=== PATIENT | female | born 1940 | race Caucasian/White ===

== ENCOUNTER 2018-07-22 01:51 | Inpatient (IN) | payer MEDICARE, MEDICAID ==
[2018-07-22] MEDS ORDERED: EPINEPHrine 1 mg/ml (1:1000) Inj ONE (02:02)
[2018-07-22] MEDS ORDERED: DiphenhydrAMINE 50 mg/ml Inj ONE (02:02)
[2018-07-22 02:27] LABS: BASO % 0.4 % (0.0-2.0); EOS % 0.1 % (0.0-4.0); HEMOGLOBIN 13.2 g/dL (12.0-16.0); LYMPH # 1.3 K/uL (1.0-4.3); LYMPH % 14.6 % (20.0-40.0); MEAN CELL VOLUME 88.6 fl (81.0-99.0); MEAN CORPUSCULAR HEMOGLOBIN 29.9 pg (27.0-31.0); MEAN CORPUSCULAR HGB CONC 33.8 g/dL (33.0-37.0); MEAN PLATELET VOLUME 9.7 fl (7.2-11.7); MONO # 0.1 K/uL (0.0-0.8); MONO % 1.4 % (0.0-10.0); NEUT # 7.4 K/uL (1.8-7.0); NEUT % 83.5 % (50.0-75.0); RBC 4.41 Mil/uL (3.80-5.20); RED CELL DISTRIBUTION WIDTH 13.6 % (11.5-14.5); WHITE BLOOD COUNT 8.8 K/uL (4.8-10.8)
[2018-07-22] MEDS ORDERED: Sodium Chloride 0.9% 1,000 ML IV STA ×2 (02:28)
[2018-07-22 02:30] LABS: VENOUS BLOOD GAS BASE EXCESS 1.4 mmol/L (0.0-2.0); VENOUS BLOOD GAS PCO2 35 mmHg (40-60); VENOUS BLOOD GAS PO2 154 mm/Hg (30-55); VENOUS BLOOD PH 7.46 (7.32-7.43)
[2018-07-22 02:35] LABS: ABG ALLEN TEST YES; ARTERIAL BLOOD GAS HCO3 24.7 mmol/L (21-28); ARTERIAL BLOOD GAS O2 SAT 100.7 % (95-98); ARTERIAL BLOOD GAS PCO2 38 mm/Hg (35-45); ARTERIAL BLOOD GAS PH 7.41 (7.35-7.45); ARTERIAL BLOOD GAS PO2 155 mm/Hg (80-100); ARTERIAL BLOOD GAS TCO2 25.3 mmol/L (22-28)
[2018-07-22] MEDS ORDERED: Insulin Regular 100 units/ml IV STA (02:38)
[2018-07-22] MEDS ORDERED: Insulin Regular 100 units/ml ONE (02:39)
--- NOTE | 2018-07-22 02:40 | ED PDOC ---
HPI: Allergic Reaction Chief Complaint (Nursing): Allergic Reaction Chief Complaint (Provider): Allergic Reaction History Per: EMS History/Exam Limitations: clinical condition (dementia, non verbal) Additional Complaint(s): 78 years old female with history of CVA, type II diabetes, hypertension and COPD brought in by [facility] from [facility] after patient was found to have swelling to tongue and lips. EMs report they received a call at approximately 11:09 for what appeared to be anaphylaxis but call was canceled by nursing homes. EMS got a call again bringing patient at this time. Per EMS, patient has foul odor with flaking of tongue and lips, however, stable vitals. According to EMS, correction reports patient has been DNR, DNH, DNI; however, son reported as Blaine Ochoa revoked the DNH but patient remained DNR, DNI. Those forms were not sent with EMS. EMS gave epinephrine and decadron with no improvement in status. PMD: Iban Laughlin Past Medical History Reviewed: Historical Data, Nursing Documentation, Vital Signs Vital Signs: Last Vital Signs Temp 98 F 07/22/18 01:54 Pulse 113 H 07/22/18 01:54 Resp 20 07/22/18 01:54 BP 128/60 07/22/18 01:54 Pulse Ox 100 07/22/18 01:54 - Medical History PMH: Anemia, COPD, CVA, HTN, Hypercholesterolemia - Surgical History Surgical History: No Surg Hx - Family History Family History: States: Unknown Family Hx - Home Medications Home Medications: Ambulatory Orders Medication Instructions Recorded Acetaminophen [Tylenol] 2 tab PEG Q4 PRN 03/11/15 Acetaminophen [Tylenol] 2 tab PEG Q4 PRN 03/11/15 Amlodipine Besylate 1 tab PEG DAILY 03/11/15 Aspirin [Aspirin Chewable] 1 tab PEG DAILY 03/11/15 Calcium Carbonate [Calcium 5 ml PEG DAILY 03/11/15 Carbonate Susp] Dipyridamole 1 tab PEG BID 03/11/15 Ferrous Sulfate 7.4 ml PEG DAILY 03/11/15 Hydrocortisone Racheal 0.2% Cr 1 appl TOP BID 03/11/15 [Westcort] Insulin Detemir [Levemir] 10 units SC BID 03/11/15 Insulin Human Regular [Novolin R] 1 unit SC ACHS 03/11/15 Ipratropium/Albuterol Sulfate 3 ml IH BID PRN 03/11/15 [Duoneb 3 mg/3 ml-0.5 mg/3 ml 3 ml] Lactulose [Lactulose Concentrate 30 ml PEG DAILY 03/11/15 500 ml] Losartan Potassium 1 tab PEG DAILY 03/11/15 Mineral Oil [Fleet Mineral Oil 1 dose [place] PRN PRN 03/11/15 Enema] Multivitamin [Multi-Delyn 5 ml] 5 ml PEG DAILY 03/11/15 Omeprazole [Prilosec] 2 cap PEG DAILY 03/11/15 Potassium Chloride [Potassium 7.5 ml PEG DAILY 03/11/15 Chloride Solution] Pravastatin Sodium [Pravachol] 1 tab PEG DAILY 03/11/15 - Allergies Allergies/Adverse Reactions: Allergies Allergy/AdvReac Type Severity Reaction Status Date / Time iodine Allergy ANGIOEDEMA Verified 07/22/18 01:57 shellfish derived Allergy ANGIOEDEMA Verified 07/22/18 01:57 Review of Systems Review Of Systems: ROS cannot be obtained secondary to pt's inabilty to answer questions. Physical Exam - Reviewed Nursing Documentation Reviewed: Yes Vital Signs Reviewed: Yes - Physical Exam Head Exam: Positive for: ATRAUMATIC (Head turned to left position) Skin: Negative for: Rash (ecchymosis or bruising) Eye Exam: Positive for: Other (mucopurulent discharge from both eyes bilaterally) ENT: Positive for: Other (muscous from oral pharynx around tongue. Gag reflex intact) Cardiovascular/Chest: Positive for: Regular Rate, Rhythm, Tachycardia, Other (G tube in place. No sings of erythema to G tube) Gastrointestinal/Abdominal: Positive for: Normal Exam, Soft. Negative for: Tenderness Extremity: Positive for: Other (Both arms contracted but able to be positioned into extension. Left arm more contracted than right arm.) Neurological/Psych: Positive for: Other (Patient no responsive to verbal stimuli. Poses away from painful stimuli) - Laboratory Results Result Diagrams: 07/22/18 10:58 07/22/18 10:58 - ECG O2 Sat by Pulse Oximetry: 100 (RA) Pulse Ox Interpretation: Normal - Critical Care Total Time (In Min): 60 Documented Critical Care: Time excludes all time spent performint seperately billable procedures Disposition - Clinical Impression Clinical Impression: Angioedema, Allergic reaction, Pneumonia - Disposition Disposition Time: 03:49 Condition: CRITICAL Medical Decision Making - Lab Interpretations Lab Results: pCO2 38 mm/Hg (35-45) 07/22/18 02:26 pO2 155 mm/Hg (80-100) H 07/22/18 02:26 HCO3 24.7 mmol/L (21-28) 07/22/18 02:26 ABG pH 7.41 (7.35-7.45) 07/22/18 02:26 ABG Total CO2 25.3 mmol/L (22-28) 07/22/18 02:26 ABG O2 Saturation 100.7 % (95-98) H 07/22/18 02:26 ABG Base Excess -0.3 mmol/L (-2.0-3.0) 07/22/18 02:26 Luis Test Yes 07/22/18 02:26 ABG Potassium 5.0 mmol/L (3.6-5.2) 07/22/18 02:26 VBG pH 7.46 (7.32-7.43) H 07/22/18 02:25 VBG pCO2 35 mmHg (40-60) L 07/22/18 02:25 VBG HCO3 26.1 mmol/L 07/22/18 02:25 VBG Total CO2 26.0 mmol/L (22-28) 07/22/18 02:25 VBG O2 Sat (Calc) 100.5 % (40-65) H 07/22/18 02:25 VBG Base Excess 1.4 mmol/L (0.0-2.0) 07/22/18 02:25 VBG Potassium 5.0 mmol/L (3.6-5.2) 07/22/18 02:25 A-a O2 Difference -3.0 mm/Hg 07/22/18 02:26 Sodium 132.0 mmol/L (132-148) 07/22/18 02:26 Chloride 97.0 mmol/L (98-107) L 07/22/18 02:26 Glucose 506 mg/dL (65-105) H* 07/22/18 02:26 Lactate 1.4 mmol/L (0.7-2.1) 07/22/18 02:26 Vent Mode 2lnc 07/22/18 02:26 FiO2 28.0 % 07/22/18 02:26 Crit Value Called To Hawk cordero md 07/22/18 02:26 Crit Value Called By 333 07/22/18 02:26 Crit Value Read Back Y 07/22/18 02:26 Blood Gas Notified Time 234 07/22/18 02:26 Troponin I < 0.0120 ng/mL (0.00-0.120) 07/22/18 02:23 NT-Pro-B Natriuret Pep 1260 pg/ml (0-900) H 07/22/18 02:23 - RAD Interpretation Radiology Orders: 07/22/18 02:15 CHEST PORTABLE [RAD] Stat - Medication Orders Current Medication Orders: Sodium Chloride (Sodium Chloride 0.9%) 1,000 mls @ 1,000 mls/hr IV .Q1H STA Stop: 07/22/18 03:27 Sodium Chloride (Sodium Chloride 0.9%) 1,000 mls @ 1,000 mls/hr IV .Q1H STA Stop: 07/22/18 03:27 Medical Decision Making Medical Decision Making: TimE: 0158 MDM: Swelling of tongue and lips with mucopurulent discharge --Most likely infection of oral pharynx --Rule out anaphylaxis due to no response to epinephrine and SOLU-Medrol --No known allergies 0220 --Attempted to contact son/PMD to discuss resuscitation status but phone number in hospital records did not go through --Krista the spot billing clerk, confirmed with correction that son revoked DNH but patient remains DNR and DNI --Finger sick more than 400 --Patient given IV fluids at this time --Mishra catheter has been placed --Cultures and labs sent --CT oral pharynx for sings of infection w/o contrast --This patient has documented iodine allergy (after CT contrast once patient stabilized) 0307 Placed nasal trumpet for airway Continue sat for 100%. Patient remains tachycardic Waiting discussion of ICU and on urine possible source before antibiotics. 0349 Patient to be admitted under Dr. Laughlin. Pt now with cough productive purulent, brown sputum. Starting patient on antibiotics and pt has been suctioned. Scribe Attestation: Documented by Keily Pride, acting as a scribe for Enedelia Arechiga MD. Provider Scribe Attestation: All medical record entries made by the Scribe were at my direction and personally dictated by me. I have reviewed the chart and agree that the record accurately reflects my personal performance of the history, physical exam, medical decision making, and the department course for this patient.
[2018-07-22 02:48] LABS: B-TYPE NATRIURETIC PEPTIDE 1260 pg/ml (0-900)
[2018-07-22 02:53] LABS: ALB/GLOB RATIO 0.9 (1.0-2.1); ALBUMIN 3.9 g/dL (3.5-5.0); ALT/SGPT 23 U/L (9-52); AST/SGOT 28 U/L (14-36); BLOOD UREA NITROGEN 40 mg/dl (7-17); CALCIUM 9.4 mg/dL (8.4-10.2); GFR NON-AFRICAN AMERICAN > 60
[2018-07-22] MEDS ORDERED: DiphenhydrAMINE 50 mg/ml Inj IVP STA (03:02)
[2018-07-22 03:19] LABS: INR 1.1; PROTHROMBIN TIME 12.5 Seconds (9.8-13.1)
[2018-07-22 03:20] LABS: SQUAMOUS EPITHIAL 1 /hpf (0-5); URINE BILIRUBIN NEGATIVE (NEGATIVE); URINE BLOOD NEGATIVE (NEGATIVE); URINE CLARITY SLIGHTY-CLOUDY (Clear); URINE COLOR YELLOW (YELLOW); URINE GLUCOSE (UA) >=500 mg/dL (NEGATIVE); URINE LEUKOCYTE ESTERASE NEG Leu/uL (Negative); URINE PROTEIN 30 mg/dL (NEGATIVE); URINE UROBILINOGEN 0.2-1.0 mg/dL (0.2-1.0)
[2018-07-22 03:22] LABS: PARTIAL THROMBOPLASTIN TIME 37.4 Seconds (25.6-37.1)
--- NOTE | 2018-07-22 03:59 | CP.PCM.CON ---
History of Present Illness - History of Present Illness History of Present Illness: PMD: Iban Laughlin Reason for Consult: critical care management Chief Complaint: Swollen tongue The patient was seen and evaluated in the ED HPI: The hx is obtained from the EMS notes and after review of the Laboratory and medical records as the patient cannot speak. This is a 78 years old female residing at [facility]. She was brought to the ED by EMS because of Swollen lip and tongue, with the tongue protruding from the mouth with the exterior portion dry and emitting foul odor.which apparently began yesterday in the evening. She was given Decadron, Epinephrine and Benadryl en route to the ED. She has hx of COPD, CVA with Aphasia and dysphagia with PEG tube, DM II and HTN for which she takes Losartan. 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 - Constitutional Constitutional: absent: Fever - EENT Nose/Mouth/Throat: absent: Epistaxis - Respiratory Respiratory: Wheezing. 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 - HEENT Hx HEENT Problems: No - RENAL Hx Chronic Kidney Disease: No - ENDOCRINE/METABOLIC Hx Endocrine Disorders: Yes Hx Diabetes Mellitus Type 2: Yes - HEMATOLOGICAL/ONCOLOGICAL Hx Anemia: Yes - INTEGUMENTARY Hx Dermatological Problems: No - MUSCULOSKELETAL/RHEUMATOLOGICAL Hx Musculoskeletal Disorders: Yes Hx Falls: Yes Hx Osteoarthritis: Yes Other/Comment: flaccid hemiplegia - GASTROINTESTINAL HX Swallowing Problems: Yes - GENITOURINARY/GYNECOLOGICAL Hx Genitourinary Disorders: Yes Hx Urinary Tract Infection: Yes - PSYCHIATRIC Hx Psychophysiologic Disorder: No Hx Substance Use: No - SURGICAL HISTORY Hx Surgeries: Yes Other/Comment: PEG tube - ANESTHESIA Hx Anesthesia: Yes Hx Anesthesia Reactions: No Meds Allergies/Adverse Reactions: Allergies Allergy/AdvReac Type Severity Reaction Status Date / Time iodine Allergy ANGIOEDEMA Verified 07/22/18 01:57 shellfish derived Allergy ANGIOEDEMA Verified 07/22/18 01:57 Physical Exam - Constitutional Appears: In Acute Distress - Head Exam Head Exam: ATRAUMATIC - Eye Exam Additional comments: Difficult to evaluate, pupils appear equal at 3mm reacting sluggish to light. - ENT Exam Additional comments: Upper lip swollen with Tongue enlarged protruding from the mouth, with the upper surface erythematous and very dry. Difficult to see in mouth because of th eswollen tongue. a nasal airway is in place. - Neck Exam Additional comments: Neck with mild edema, non tender - Respiratory Exam Additional comments: Harsh transmitted breath sounds, Expiratory wheezes - Cardiovascular Exam Cardiovascular Exam: Tachycardia, REGULAR RHYTHM, +S1, +S2. absent: Gallop - GI/Abdominal Exam GI & Abdominal Exam: Mass, Normal Bowel Sounds, Soft. absent: Tenderness - Rectal Exam Rectal Exam: Deferred - Extremities Exam Extremities exam: Positive for: normal inspection. Negative for: calf tenderness, pedal edema - Back Exam Back exam: NORMAL INSPECTION. absent: CVA tenderness (L), CVA tenderness (R) - Neurological Exam Additional comments: Sleepy but easily arousble, facial droop difficult to assess. Non verbal , coughing, moving the left upper extremity. The right upper extremity is Spastic and motor strength 0/5. Moving the right lower extremity minimally and the left lower extremity is motor strength 0/5 - Psychiatric Exam Psychiatric exam: Flat Affect - Skin Skin Exam: Dry, Normal Color, Warm Results - Vital Signs Recent Vital Signs: Last Vital Signs Temp 98.8 F 07/22/18 03:05 Pulse 108 H 07/22/18 03:17 Resp 18 07/22/18 03:17 BP 156/74 H 07/22/18 03:17 Pulse Ox 100 07/22/18 03:50 - Labs Result Diagrams: 07/22/18 02:23 07/22/18 02:23 Labs: Laboratory Results - last 24 hr 07/22/18 07/22/18 07/22/18 01:53 02:05 02:23 WBC RBC Hgb Hct MCV MCH MCHC RDW Plt Count MPV Neut % (Auto) Lymph % (Auto) [place] % (Auto) Eos % (Auto) Baso % (Auto) Neut # (Auto) Lymph # (Auto) [place] # (Auto) Eos # (Auto) Baso # (Auto) PT INR APTT pCO2 pO2 HCO3 ABG pH ABG Total CO2 ABG O2 Saturation ABG Base Excess Luis Test ABG Potassium VBG pH VBG pCO2 VBG HCO3 VBG Total CO2 VBG O2 Sat (Calc) VBG Base Excess VBG Potassium A-a O2 Difference Glucose Lactate Vent Mode FiO2 Crit Value Called To Crit Value Called By Crit Value Read Back Blood Gas Notified Time Sodium 132 Potassium 5.0 Chloride 96 L Carbon Dioxide 25 Anion Gap 16 BUN 40 H Creatinine 0.8 Est GFR ( Amer) > 60 Est GFR (Non-Af Amer) > 60 POC Glucose (mg/dL) 499 H* Random Glucose 530 H* D Calcium 9.4 Total Bilirubin 0.5 AST 28 ALT 23 Alkaline Phosphatase 76 Troponin I < 0.0120 NT-Pro-B Natriuret Pep 1260 H Total Protein 8.2 Albumin 3.9 Globulin 4.2 H Albumin/Globulin Ratio 0.9 L Arterial Blood Potassium Venous Blood Potassium Urine Color Urine Clarity Urine pH Ur Specific [place] Urine Protein Urine Glucose (UA) Urine Ketones Urine Blood Urine Nitrate Urine Bilirubin Urine Urobilinogen Ur Leukocyte Esterase Urine RBC (Auto) Urine Microscopic WBC Ur Squamous Epith Cells Blood Type A POSITIVE Antibody Screen Negative BBK History Checked No verified bt 07/22/18 07/22/18 07/22/18 02:23 02:23 02:25 WBC 8.8 RBC 4.41 Hgb 13.2 Hct 39.0 MCV 88.6 D MCH 29.9 MCHC 33.8 RDW 13.6 Plt Count 255 D MPV 9.7 Neut % (Auto) 83.5 H Lymph % (Auto) 14.6 L [place] % (Auto) 1.4 Eos % (Auto) 0.1 Baso % (Auto) 0.4 Neut # (Auto) 7.4 H Lymph # (Auto) 1.3 [place] # (Auto) 0.1 Eos # (Auto) 0.0 Baso # (Auto) 0.0 PT 12.5 INR 1.1 APTT 37.4 H pCO2 pO2 154 H HCO3 ABG pH ABG Total CO2 ABG O2 Saturation ABG Base Excess Luis Test ABG Potassium VBG pH 7.46 H VBG pCO2 35 L VBG HCO3 26.1 VBG Total CO2 26.0 VBG O2 Sat (Calc) 100.5 H VBG Base Excess 1.4 VBG Potassium 5.0 A-a O2 Difference Glucose 522 H* Lactate 1.5 Vent Mode FiO2 28.0 Crit Value Called To Md hawk cordero Crit Value Called By 333 Crit Value Read Back Y Blood Gas Notified Time 229 Sodium 130.0 L Potassium Chloride 96.0 L Carbon Dioxide Anion Gap BUN Creatinine Est GFR ( Amer) Est GFR (Non-Af Amer) POC Glucose (mg/dL) Random Glucose Calcium Total Bilirubin AST ALT Alkaline Phosphatase Troponin I NT-Pro-B Natriuret Pep Total Protein Albumin Globulin Albumin/Globulin Ratio Arterial Blood Potassium Venous Blood Potassium 5.0 Urine Color Urine Clarity Urine pH Ur Specific [place] Urine Protein Urine Glucose (UA) Urine Ketones Urine Blood Urine Nitrate Urine Bilirubin Urine Urobilinogen Ur Leukocyte Esterase Urine RBC (Auto) Urine Microscopic WBC Ur Squamous Epith Cells Blood Type Antibody Screen BBK History Checked 07/22/18 07/22/18 02:26 03:10 WBC RBC Hgb Hct MCV MCH MCHC RDW Plt Count MPV Neut % (Auto) Lymph % (Auto) [place] % (Auto) Eos % (Auto) Baso % (Auto) Neut # (Auto) Lymph # (Auto) [place] # (Auto) Eos # (Auto) Baso # (Auto) PT INR APTT pCO2 38 pO2 155 H HCO3 24.7 ABG pH 7.41 ABG Total CO2 25.3 ABG O2 Saturation 100.7 H ABG Base Excess -0.3 Luis Test Yes ABG Potassium 5.0 VBG pH VBG pCO2 VBG HCO3 VBG Total CO2 VBG O2 Sat (Calc) VBG Base Excess VBG Potassium A-a O2 Difference -3.0 Glucose 506 H* Lactate 1.4 Vent Mode 2lnc FiO2 28.0 Crit Value Called To Hawk cordero md Crit Value Called By 333 Crit Value Read Back Y Blood Gas Notified Time 234 Sodium 132.0 Potassium Chloride 97.0 L Carbon Dioxide Anion Gap BUN Creatinine Est GFR ( Amer) Est GFR (Non-Af Amer) POC Glucose (mg/dL) Random Glucose Calcium Total Bilirubin AST ALT Alkaline Phosphatase Troponin I NT-Pro-B Natriuret Pep Total Protein Albumin Globulin Albumin/Globulin Ratio Arterial Blood Potassium 5.0 Venous Blood Potassium Urine Color Yellow Urine Clarity Slighty-cloudy Urine pH 7.0 Ur Specific [place] 1.023 Urine Protein 30 Urine Glucose (UA) >=500 Urine Ketones Negative Urine Blood Negative Urine Nitrate Negative Urine Bilirubin Negative Urine Urobilinogen 0.2-1.0 Ur Leukocyte Esterase Neg Urine RBC (Auto) 1 Urine Microscopic WBC 1 Ur Squamous Epith Cells 1 Blood Type Antibody Screen BBK History Checked - Impressions Impression: Sinus tachycardia 116/min - Imaging and Cardiology Chest x-ray Status: Image reviewed by me Additional comment: No infiltrate Assessment & Plan - Assessment and Plan (Free Text) Assessment: #. Allergy with Angioedema #. DM with Hyperglycemia #. Dehydration #. COPD #. HTN #. CVA with right Hemiplegia Plan: 78 years old female residing at [facility] brought to the ED by EMS because of Swollen lip and tongue protruding from the mouth with the exterior portion dry and emitting foul odor. The long term reported the patient as being DNI/DNR #. Allergy with Angioedema most likely secondary to Losartan that she takes for HTN - Admit to ICU for critical care management - Patient is DNI/DNR so a Nasal air way was inserted in the ED - Benadryl - Pepcid - [place]-Cortif - Racemic Epinephrine #. DM with Hyperglycemia. Patient received 2 Liters of NS in ED - IV Fluids NS 125mls/hr - Levemir - Regular Insulin sliding Scale according to Accucheck Q6H #. Dehydration - IV Fluids - Follow Renal labs #. COPD - Duonebs Q 4H and Q 2H PRN #. Suspect Aspiration - Blood Culture - Emperic Ceftriaxone and Azithromycin #. HTN - Amlodipine #. CVA with right Hemiplegia, Aphasia and Dysphagia - PEG tube feeding - ASA - Pravastatin #. DVT Prophylaxis with SCD and Lovenox #. Code Status: DNR/DNI - Date & Time Date: 07/22/18 Time: 03:58
[2018-07-22] MEDS ORDERED: Mineral Oil Enema 135 ml PR PRN ×2 (04:14→05:32)
[2018-07-22] MEDS ORDERED: Albuterol-Ipratrop 3 mg / 0.5 (3 ml) UD INH PRN (05:17)
[2018-07-22] MEDS ORDERED: Insulin Regular 100 units/ml SC STA (05:18)
[2018-07-22] MEDS: Sodium Chloride 0.9% 1,000 ML IV SCH ×2 (06:31→18:09)
[2018-07-22] MEDS ORDERED: Racepinephrine 2.25% Inhal Soln 0.5 ML UD INH PRN (06:55)
[2018-07-22] MEDS ORDERED: DiphenhydrAMINE 50 mg/ml Inj IVP PRN (08:00)
[2018-07-22] MEDS: Albuterol-Ipratrop 3 mg / 0.5 (3 ml) UD INH SCH ×5 (08:01→23:29)
[2018-07-22] MEDS: Azithromycin 500 MG in Sodium Chloride 0.9% 250 ML IVPB SCH (08:20)
[2018-07-22] MEDS: Enoxaparin 40 mg Syringe SC SCH (08:23)
[2018-07-22] MEDS: Multi Vitamins 15 mL UD Oral Solution PEG SCH (08:23)
[2018-07-22] MEDS ORDERED: LACTULOSE PEG SCH (09:00)
[2018-07-22] MEDS ORDERED: OMEPRAZOLE PEG SCH (09:00)
[2018-07-22] MEDS ORDERED: Insulin Detemir 100 Units/ml Inj SC SCH (09:00)
[2018-07-22] MEDS ORDERED: Multi Vitamins 15 mL UD Oral Solution PEG SCH (09:00)
[2018-07-22] MEDS: Insulin Regular 100 units/ml SC SCH ×3 (10:22→23:15)
[2018-07-22] MEDS: DiphenhydrAMINE 50 mg/ml Inj IVP SCH ×2 (10:28→20:46)
[2018-07-22 11:33] LABS: BASO % 0.3 % (0.0-2.0); EOS % 0.1 % (0.0-4.0); HEMOGLOBIN 12.4 g/dL (12.0-16.0); LYMPH # 1.1 K/uL (1.0-4.3); MEAN CELL VOLUME 88.8 fl (81.0-99.0); MEAN CORPUSCULAR HEMOGLOBIN 30.1 pg (27.0-31.0); MEAN PLATELET VOLUME 9.2 fl (7.2-11.7); MONO # 0.4 K/uL (0.0-0.8); NEUT # 7.4 K/uL (1.8-7.0); NEUT % 83.6 % (50.0-75.0); RBC 4.1 Mil/uL (3.80-5.20); RED CELL DISTRIBUTION WIDTH 13.5 % (11.5-14.5); WHITE BLOOD COUNT 8.8 K/uL (4.8-10.8)
[2018-07-22 11:53] LABS: BLOOD UREA NITROGEN 31 mg/dl (7-17); CALCIUM 8.5 mg/dL (8.4-10.2); GFR NON-AFRICAN AMERICAN > 60
--- NOTE | 2018-07-22 14:13 | CP.PCM.HP ---
History of Present Illness - History of Present Illness History of Present Illness: CC: Allergic reaction. 78 y/o F, [facility] resident, Hx Dementia, CVA with R side Hemiplegia, Aphasia, Dysphagia- Peg-Tube insertion, DMII, COPD, HTN, HLD. Pt was brought to ER [facility], [place] via EMS on 07/22/18 to be evaluated for possible allergic reaction, associated to swollen lips and tongue, tongue appeared prot ruding, extending to exterior of lips, unable to close mouth with foul odor, onset night [employer], Pt had Benadryl, Solu Medrol at [facility] with no improvement. Worsening symptoms: Unresponsive, SOB, productive cough with San thick phlegm, tachycardia. While in ER, BP went up to 179/94 HR: 129, BS: 530. Aggravated factor: Non verbal As per MA: No Fever, chills, n/v/d, abdominal pain, urinary symptoms, CP, sick contact. Present on Admission - Present on Admission Any Indicators Present on Admission: No Review of Systems - Review of Systems Systems not reviewed;Unavailable: Acuity of Condition, Other (Unable to communicate, non verbal.) Past Patient History - Past Medical History & Family History Past Medical History?: Yes Pertinent Family History: Unknown - Past Social History Smoking Status: Unknown If Ever Smoked Chewing Tobacco Use: No Cigar Use: No Alcohol: None Drugs: Denies Home Situation {Lives}: Detention - CARDIAC Hx Cardiac Disorders: Yes Hx Hypercholesterolemia: Yes Hx Hypertension: Yes - PULMONARY Hx Respiratory Disorders: Yes Hx Chronic Obstructive Pulmonary Disease (COPD): Yes - NEUROLOGICAL Hx Neurological Disorder: Yes HX Cerebrovascular Accident: Yes Other/Comment: R flaccid hemiplegia - HEENT Hx HEENT Problems: No - RENAL Hx Chronic Kidney Disease: No - ENDOCRINE/METABOLIC Hx Endocrine Disorders: Yes Hx Diabetes Mellitus Type 2: Yes - HEMATOLOGICAL/ONCOLOGICAL Hx Blood Disorders: Yes Hx Anemia: Yes - INTEGUMENTARY Hx Dermatological Problems: No - MUSCULOSKELETAL/RHEUMATOLOGICAL Hx Musculoskeletal Disorders: Yes Hx Falls: Yes Hx Osteoarthritis: Yes Other/Comment: R flaccid hemiplegia - GASTROINTESTINAL Hx Gastrointestinal Disorders: Yes HX Swallowing Problems: Yes Other/Comment: Dysphagia - GENITOURINARY/GYNECOLOGICAL Hx Genitourinary Disorders: Yes Hx Urinary Tract Infection: Yes - PSYCHIATRIC Hx Psychophysiologic Disorder: No Hx Substance Use: No - SURGICAL HISTORY Hx Surgeries: Yes Other/Comment: PEG tube - ANESTHESIA Hx Anesthesia: Yes Hx Anesthesia Reactions: No Meds Allergies/Adverse Reactions: Allergies Allergy/AdvReac Type Severity Reaction Status Date / Time iodine Allergy ANGIOEDEMA Verified 07/22/18 01:57 shellfish derived Allergy ANGIOEDEMA Verified 07/22/18 01:57 Physical Exam - Constitutional Appears: Chronically Ill - Head Exam Head Exam: NORMAL INSPECTION - Eye Exam Eye Exam: PERRL - ENT Exam Additional comments: Tongue swelling protruding trough the lips, nasal trumpet - Neck Exam Neck exam: Positive for: Normal Inspection - Respiratory Exam Respiratory Exam: Decreased Breath Sounds (b/l), Rhonchi (scattered, no stridor.) - Cardiovascular Exam Cardiovascular Exam: Tachycardia - GI/Abdominal Exam GI & Abdominal Exam: Normal Bowel Sounds, Soft - Exam Additional comments: Mishra Cath - Extremities Exam Additional comments: R-L arm contracted L > R. - Back Exam Additional comments: Skin tear gluteal folds, no bleeding, sacral skin tear, no bleeding. - Neurological Exam Additional comments: Non verbal, minimal response to tactile stimuli R hemiplegia. - Skin Skin Exam: Warm Results - Vital Signs Recent Vital Signs: Last Vital Signs Temp 98.9 F 07/22/18 12:00 Pulse 86 07/22/18 13:04 Resp 23 07/22/18 13:04 BP 124/53 L 07/22/18 13:04 Pulse Ox 100 07/22/18 13:04 reviewed Joslyn - Labs Result Diagrams: 07/24/18 06:05 07/24/18 06:05 Labs: Laboratory Results - last 24 hr 07/22/18 07/22/18 07/22/18 01:53 02:05 02:23 WBC RBC Hgb Hct MCV MCH MCHC RDW Plt Count MPV Neut % (Auto) Lymph % (Auto) [place] % (Auto) Eos % (Auto) Baso % (Auto) Neut # (Auto) Lymph # (Auto) [place] # (Auto) Eos # (Auto) Baso # (Auto) PT INR APTT pCO2 pO2 HCO3 ABG pH ABG Total CO2 ABG O2 Saturation ABG Base Excess Luis Test ABG Potassium VBG pH VBG pCO2 VBG HCO3 VBG Total CO2 VBG O2 Sat (Calc) VBG Base Excess VBG Potassium A-a O2 Difference Glucose Lactate Vent Mode FiO2 Crit Value Called To Crit Value Called By Crit Value Read Back Blood Gas Notified Time Sodium 132 Potassium 5.0 Chloride 96 L Carbon Dioxide 25 Anion Gap 16 BUN 40 H Creatinine 0.8 Est GFR ( Amer) > 60 Est GFR (Non-Af Amer) > 60 POC Glucose (mg/dL) 499 H* Random Glucose 530 H* D Calcium 9.4 Total Bilirubin 0.5 AST 28 ALT 23 Alkaline Phosphatase 76 Troponin I < 0.0120 NT-Pro-B Natriuret Pep 1260 H Total Protein 8.2 Albumin 3.9 Globulin 4.2 H Albumin/Globulin Ratio 0.9 L Arterial Blood Potassium Venous Blood Potassium Urine Color Urine Clarity Urine pH Ur Specific [place] Urine Protein Urine Glucose (UA) Urine Ketones Urine Blood Urine Nitrate Urine Bilirubin Urine Urobilinogen Ur Leukocyte Esterase Urine RBC (Auto) Urine Microscopic WBC Ur Squamous Epith Cells Blood Type A POSITIVE Blood Type Confirm Antibody Screen Negative BBK History Checked No verified bt 07/22/18 07/22/18 07/22/18 02:23 02:23 02:25 WBC 8.8 RBC 4.41 Hgb 13.2 Hct 39.0 MCV 88.6 D MCH 29.9 MCHC 33.8 RDW 13.6 Plt Count 255 D MPV 9.7 Neut % (Auto) 83.5 H Lymph % (Auto) 14.6 L [place] % (Auto) 1.4 Eos % (Auto) 0.1 Baso % (Auto) 0.4 Neut # (Auto) 7.4 H Lymph # (Auto) 1.3 [place] # (Auto) 0.1 Eos # (Auto) 0.0 Baso # (Auto) 0.0 PT 12.5 INR 1.1 APTT 37.4 H pCO2 pO2 154 H HCO3 ABG pH ABG Total CO2 ABG O2 Saturation ABG Base Excess Luis Test ABG Potassium VBG pH 7.46 H VBG pCO2 35 L VBG HCO3 26.1 VBG Total CO2 26.0 VBG O2 Sat (Calc) 100.5 H VBG Base Excess 1.4 VBG Potassium 5.0 A-a O2 Difference Glucose 522 H* Lactate 1.5 Vent Mode FiO2 28.0 Crit Value Called To Md hawk cordero Crit Value Called By 333 Crit Value Read Back Y Blood Gas Notified Time 229 Sodium 130.0 L Potassium Chloride 96.0 L Carbon Dioxide Anion Gap BUN Creatinine Est GFR ( Amer) Est GFR (Non-Af Amer) POC Glucose (mg/dL) Random Glucose Calcium Total Bilirubin AST ALT Alkaline Phosphatase Troponin I NT-Pro-B Natriuret Pep Total Protein Albumin Globulin Albumin/Globulin Ratio Arterial Blood Potassium Venous Blood Potassium 5.0 Urine Color Urine Clarity Urine pH Ur Specific [place] Urine Protein Urine Glucose (UA) Urine Ketones Urine Blood Urine Nitrate Urine Bilirubin Urine Urobilinogen Ur Leukocyte Esterase Urine RBC (Auto) Urine Microscopic WBC Ur Squamous Epith Cells Blood Type Blood Type Confirm Antibody Screen BBK History Checked 07/22/18 07/22/18 07/22/18 02:26 03:00 03:10 WBC RBC Hgb Hct MCV MCH MCHC RDW Plt Count MPV Neut % (Auto) Lymph % (Auto) [place] % (Auto) Eos % (Auto) Baso % (Auto) Neut # (Auto) Lymph # (Auto) [place] # (Auto) Eos # (Auto) Baso # (Auto) PT INR APTT pCO2 38 pO2 155 H HCO3 24.7 ABG pH 7.41 ABG Total CO2 25.3 ABG O2 Saturation 100.7 H ABG Base Excess -0.3 Luis Test Yes ABG Potassium 5.0 VBG pH VBG pCO2 VBG HCO3 VBG Total CO2 VBG O2 Sat (Calc) VBG Base Excess VBG Potassium A-a O2 Difference -3.0 Glucose 506 H* Lactate 1.4 Vent Mode 2lnc FiO2 28.0 Crit Value Called To Hawk cordero md Crit Value Called By 333 Crit Value Read Back Y Blood Gas Notified Time 234 Sodium 132.0 Potassium Chloride 97.0 L Carbon Dioxide Anion Gap BUN Creatinine Est GFR ( Amer) Est GFR (Non-Af Amer) POC Glucose (mg/dL) Random Glucose Calcium Total Bilirubin AST ALT Alkaline Phosphatase Troponin I NT-Pro-B Natriuret Pep Total Protein Albumin Globulin Albumin/Globulin Ratio Arterial Blood Potassium 5.0 Venous Blood Potassium Urine Color Yellow Urine Clarity Slighty-cloudy Urine pH 7.0 Ur Specific [place] 1.023 Urine Protein 30 Urine Glucose (UA) >=500 Urine Ketones Negative Urine Blood Negative Urine Nitrate Negative Urine Bilirubin Negative Urine Urobilinogen 0.2-1.0 Ur Leukocyte Esterase Neg Urine RBC (Auto) 1 Urine Microscopic WBC 1 Ur Squamous Epith Cells 1 Blood Type Blood Type Confirm A POSITIVE Antibody Screen BBK History Checked 07/22/18 07/22/18 07/22/18 04:36 10:58 10:58 WBC 8.8 RBC 4.10 Hgb 12.4 Hct 36.4 MCV 88.8 MCH 30.1 MCHC 34.0 RDW 13.5 Plt Count 229 MPV 9.2 Neut % (Auto) 83.6 H Lymph % (Auto) 12.0 L [place] % (Auto) 4.0 Eos % (Auto) 0.1 Baso % (Auto) 0.3 Neut # (Auto) 7.4 H Lymph # (Auto) 1.1 [place] # (Auto) 0.4 Eos # (Auto) 0.0 Baso # (Auto) 0.0 PT INR APTT pCO2 pO2 HCO3 ABG pH ABG Total CO2 ABG O2 Saturation ABG Base Excess Luis Test ABG Potassium VBG pH VBG pCO2 VBG HCO3 VBG Total CO2 VBG O2 Sat (Calc) VBG Base Excess VBG Potassium A-a O2 Difference Glucose Lactate Vent Mode FiO2 Crit Value Called To Crit Value Called By Crit Value Read Back Blood Gas Notified Time Sodium 137 Potassium 4.2 Chloride 104 Carbon Dioxide 23 Anion Gap 14 BUN 31 H Creatinine 0.7 Est GFR ( Amer) > 60 Est GFR (Non-Af Amer) > 60 POC Glucose (mg/dL) 365 H Random Glucose 238 H Calcium 8.5 Total Bilirubin AST ALT Alkaline Phosphatase Troponin I NT-Pro-B Natriuret Pep Total Protein Albumin Globulin Albumin/Globulin Ratio Arterial Blood Potassium Venous Blood Potassium Urine Color Urine Clarity Urine pH Ur Specific [place] Urine Protein Urine Glucose (UA) Urine Ketones Urine Blood Urine Nitrate Urine Bilirubin Urine Urobilinogen Ur Leukocyte Esterase Urine RBC (Auto) Urine Microscopic WBC Ur Squamous Epith Cells Blood Type Blood Type Confirm Antibody Screen BBK History Checked reviewed J.P. Assessment & Plan (1) Allergic angioedema Status: Acute Priority: High (2) Diabetes mellitus with hyperglycemia Status: Acute Priority: High (3) Dehydration Status: Acute Priority: High (4) COPD (chronic obstructive pulmonary disease) Status: Chronic Priority: High (5) HTN (hypertension) Status: Chronic Priority: Medium (6) Dysphagia Status: Chronic Priority: High (7) History of CVA with residual deficit Status: Chronic Priority: High (8) Right hemiplegia Status: Chronic Priority: High - Assessment and Plan (Free Text) Plan: EKG, CXR, Blood C-S, U C-S, MRSA Screen, continue with Zithromax, Ceftriaxone, Benadryl, Solu Medrol,Racepinephrine, NS IV, Lovenox, Norvasc, Insulin and rest of Tx., Patient was examined with ID communications consultant, flexible Laryngoscopy no airway obstruction Critical care time: 60 min. - Date & Time Date: 07/22/18 Time: 13:00
--- NOTE | 2018-07-22 15:05 | RAD ---
Date of service: 07/22/2018 HISTORY: possible admission COMPARISON: Comparison chest dated 03/11/2015 TECHNIQUE: 1 view obtained. FINDINGS: LUNGS: No active pulmonary disease. PLEURA: No significant pleural effusion identified, no pneumothorax apparent. CARDIOVASCULAR: Mild aortic atherosclerotic calcification present. Normal cardiac size. There is a small calcified lymph node right suprahilar region OSSEOUS STRUCTURES: No significant abnormalities. VISUALIZED UPPER ABDOMEN: Normal. OTHER FINDINGS: None. IMPRESSION: No active disease.
--- NOTE | 2018-07-22 17:30 | CARD ---
APPROVED REPORT Date of service: 07/22/2018 EKG Measurement Heart [id number] <Conclusion> Sinus tachycardia Possible Left atrial enlargement T wave abnormality, consider lateral ischemia Abnormal ECG
[2018-07-22] MEDS: Insulin Detemir 100 Units/ml Inj SC SCH (20:43)
--- NOTE | 2018-07-23 00:31 | OP ---
PROCEDURE DATE: 07/22/2018 PREOPERATIVE DIAGNOSIS: Airway obstruction. POSTOPERATIVE DIAGNOSIS: Airway obstruction. PROCEDURE: Flexible laryngoscopy. SIGNIFICANT FINDINGS: Airway obstructions are noted. DESCRIPTION OF PROCEDURE: The patient was placed in a seated position. The nose was decongested using Afrin. A flexible laryngoscope was inserted into the nasal cavity and passed through nasopharynx, oropharynx and hypopharynx. The view was somewhat limited due to the nasal trumpet. The base of tongue, vallecula, epiglottis, AE folds, false cords, true cords, arytenoids, pyriform sinuses, vocal cords were brought into view. No masses or lesions were noted. No erythema or edema was noted. The airway was good. The scope was removed. The patient tolerated the procedure well. Jaime Dennis MD
--- NOTE | 2018-07-23 00:52 | PN ---
DATE: 07/22/2018 CRITICAL CARE PROGRESS NOTE LOCATION: The patient is in ICU, bed 422. TIME SPENT: 40 minutes. The patient is seen, evaluated at the bedside. Past medical, surgical, family, and social history reviewed. Events in ER noted. SUBJECTIVE: Ms. Diaz is a 78-year-old female, a half-way resident, with a history significant for hypertension, diabetes mellitus type 2, hyperlipidemia, chronic obstructive pulmonary disease; status post CVA with right-sided paraplegia, aphasia, and dysphagia; status post PEG insertion, admitted through emergency room after noted to have swelling and edema of the face and tongue. The patient is known allergic to iodine and shellfish. She has been taking losartan for hypertension which has been held since admission, now on nasal trumpet with oxygen supplement saturating 100%. No respiratory distress or stridor noted. Telemetry, sinus rhythm, normal to high systolic blood pressure. PHYSICAL EXAMINATION: VITAL SIGNS: Temperature 98.9, heart rate 101-106, blood pressure 111-139 over 39-64, mean arterial pressure of 63. Intake/output, to be reviewed. Weight 132 pounds. HEAD, EYES, EARS, NOSE, AND THROAT: Upper lips swollen, tongue enlarged protruding from the mouth, upper surface erythematous, very dry, nasal trumpet in place. NECK: Nontender. CHEST: Bilateral breath sounds, prolonged expiration. HEART: Rhythm regular. S1, S2 normal. ABDOMEN: Bowel sounds present. PEG in place. EXTREMITIES: With dependent edema. NEUROLOGIC: Sleepy but easily arousable, facial droop, difficult to assess, nonverbal, coughing. Moving the left upper extremity. Right upper extremity is spastic. Motor strength 0/5. Moving the right lower extremity minimally and left lower extremity strength 0/5. SKIN: Dry, normal, warm to touch. CURRENT MEDICATIONS: Tylenol 650 mg PEG every 4 hours p.r.n., albuterol/Atrovent inhalation every 4 hours, Norvasc 10 mg PEG daily, aspirin 81 mg PEG daily, azithromycin 500 mg IV daily, ceftriaxone 1 g IV daily, Benadryl 25 mL IV every 12 hours, Lovenox of 40 mg subcu daily, Pepcid 20 mg IV every 12 hours, hydrocortisone 100 mg IV every 6 hours, Levemir 10 units subcu b.i.d., Accu-Chek with regular insulin coverage, lactulose 20 g pack daily, mineral oil 135 mL [place] daily p.r.n. for constipation, multivitamin 15 mL PEG daily, racemic epinephrine 2.25%, 0.5 mL every 3 hours p.r.n., and sodium chloride at 100 mL/hour. LABORATORY DATA: WBC 8.8, hemoglobin 12.4, hematocrit 36.4, platelet count of 229, neutrophils 83.6, lymphocytes 12, monocytes 4. PT 12.5, INR 1.1, PTT 37.4. ABG; pH of 7.41, pCO2 of 38, pO2 of 155, saturation 100.7 on FiO2 of 28%. SMA-7; sodium 137, potassium 4.2, chloride 104, CO2 of 23, blood urea nitrogen 31, creatinine 0.7, random glucose 238, calcium 8.5. Urinalysis negative. Microbiology none reported. Chest x-ray, no acute infiltrate. Electrocardiogram, report pending. IMPRESSION: 1. Neurologic: Status post cerebrovascular accident with right-sided hemiplegia, status post percutaneous endoscopic gastrostomy tube insertion. 2. Pulmonary: No respiratory distress. No stridor noted. Admitted with angioedema with swollen face and lips, on systemic steroids, Benadryl, Pepcid. Closely monitor for respiratory compromise. Ears, nose and throat evaluation requested. 3. History of chronic obstructive pulmonary disease. Continue bronchodilator. Hypertension improved. 4. Hematology: No leukocytosis. Normal hemoglobin and hematocrit. Normal platelet count. No coagulopathy noted. 5. Renal: No electrolyte abnormalities. 6. Endocrinology: History of diabetes mellitus type 2, hyperglycemia secondary to steroids. Continue insulin coverage. Maintain sugar below 180. 7. Infectious Disease: No acute issues noted, empirically on antibiotic for possible upper respiratory infection. 8. Gastrointestinal: No acute issues noted. Keep head of bed 30 degrees up, nasal trumpet, monitor for respiratory compromise. Follow ears, nose, and throat evaluation. Continue deep venous thrombosis prophylaxis. Roderick Camara MD
[2018-07-23] MEDS: Sodium Chloride 0.9% 1,000 ML IV SCH (02:00)
[2018-07-23] MEDS: Albuterol-Ipratrop 3 mg / 0.5 (3 ml) UD INH SCH ×5 (05:07→19:12)
[2018-07-23 05:15] LABS: HEMOGLOBIN 11.7 g/dL (12.0-16.0); MEAN CELL VOLUME 89.6 fl (81.0-99.0); MEAN CORPUSCULAR HEMOGLOBIN 30.1 pg (27.0-31.0); MEAN CORPUSCULAR HGB CONC 33.5 g/dL (33.0-37.0); RBC 3.89 Mil/uL (3.80-5.20); RED CELL DISTRIBUTION WIDTH 13.4 % (11.5-14.5)
[2018-07-23 05:31] LABS: BLOOD UREA NITROGEN 27 mg/dl (7-17); CALCIUM 8.3 mg/dL (8.4-10.2); GFR NON-AFRICAN AMERICAN > 60
[2018-07-23] MEDS: Insulin Regular 100 units/ml SC SCH ×4 (07:00→22:36)
[2018-07-23] MEDS: Multi Vitamins 15 mL UD Oral Solution PEG SCH (08:24)
[2018-07-23] MEDS: Enoxaparin 40 mg Syringe SC SCH (08:25)
[2018-07-23] MEDS: DiphenhydrAMINE 50 mg/ml Inj IVP SCH (08:33)
[2018-07-23] MEDS: Insulin Detemir 100 Units/ml Inj SC SCH ×2 (08:42→22:37)
[2018-07-23] MEDS: Azithromycin 500 MG in Sodium Chloride 0.9% 250 ML IVPB SCH (08:48)
[2018-07-23] MEDS ORDERED: Sodium Chloride 0.9% 1,000 ML IV SCH ×2 (14:45→15:00)
[2018-07-23] MEDS: MethylPREDNISolone 40 mg Vial IVP SCH ×2 (15:10→22:38)
--- NOTE | 2018-07-23 15:52 | CP.PCM.PN ---
Subjective - Date & Time of Evaluation Date of Evaluation: 07/24/18 Time of Evaluation: 13:00 - Subjective Subjective: F/U Allergic reaction. No A/D, open eyes to verbal stimuli, no following commands. Objective - Vital Signs/Intake and Output Vital Signs (last 24 hours): Temp Pulse Resp BP Pulse Ox 98.7 F 108 H 24 139/60 100 07/23/18 11:59 07/23/18 15:00 07/23/18 15:00 07/23/18 15:00 07/23/18 15:00 Intake and Output: 07/23/18 07/23/18 06:59 18:59 Intake Total 1100 1100 Balance 1100 1100 - Medications Medications: Current Medications Acetaminophen (Tylenol 325mg Tab) 650 mg PEG Q4 PRN PRN Reason: Pain, Mild (1-3) Acetaminophen (Tylenol 325mg Tab) 650 mg PEG Q4 PRN PRN Reason: Fever >100.4 F Albuterol/Ipratropium (Duoneb 3 Mg/0.5 Mg (3 Ml) Ud) 3 ml INH RQ4 [facility] Last Admin: 07/23/18 15:10 Dose: 3 ml Albuterol/Ipratropium (Duoneb 3 Mg/0.5 Mg (3 Ml) Ud) 3 ml INH RQ4 PRN PRN Reason: Shortness of Breath Amlodipine Besylate (Norvasc) 10 mg PEG DAILY [facility] Last Admin: 07/23/18 08:25 Dose: 10 mg Aspirin (Aspirin Chewable) 81 mg PEG DAILY [facility] Last Admin: 07/23/18 08:24 Dose: 81 mg Diphenhydramine HCl (Benadryl) 12.5 mg PO Q12 [facility] Enoxaparin Sodium (Lovenox) 40 mg SC DAILY [facility]; Protocol Last Admin: 07/23/18 08:25 Dose: 40 mg Famotidine (Pepcid) 20 mg IVP Q12 [facility] Last Admin: 07/23/18 08:33 Dose: 20 mg Ceftriaxone Sodium 1 gm/ (Sodium Chloride) 100 mls @ 100 mls/hr IVPB DAILY [facility]; Protocol Last Admin: 07/23/18 08:23 Dose: 100 mls/hr Azithromycin 500 mg/ Sodium (Chloride) 250 mls @ 250 mls/hr IVPB DAILY [facility]; Protocol Last Admin: 07/23/18 08:48 Dose: 250 mls/hr Sodium Chloride (Sodium Chloride 0.9%) 1,000 mls @ 50 mls/hr IV .Q20H [facility] Stop: 07/24/18 14:50 Last Admin: 07/23/18 15:07 Dose: 50 mls/hr Insulin Detemir (Levemir) 10 units SC Q12 [facility] Last Admin: 07/23/18 08:42 Dose: 10 units Insulin Human Regular (Humulin R) 0 units SC Q6H [facility]; Protocol Last Admin: 07/23/18 10:19 Dose: 3 u Lactulose (Enulose) 20 gm PEG DAILY [facility] Last Admin: 07/23/18 08:25 Dose: 20 gm Methylprednisolone (Solu-Medrol) 40 mg IVP Q8H [facility] Last Admin: 07/23/18 15:10 Dose: 40 mg Mineral Oil (Fleet Mineral Oil Enema) 135 ml NE DAILY PRN PRN Reason: Constipation Multivitamins/Vitamin C (Multi-Delyn Liquid) 15 ml PEG DAILY [facility] Last Admin: 07/23/18 08:24 Dose: 15 ml Racepinephrine (Racepinephrine 2.25% Inhl Soln) 0.5 ml INH RQ3 PRN PRN Reason: Other - Labs Labs: 07/23/18 04:25 07/23/18 04:25 PT 12.5 Seconds (9.8-13.1) 07/22/18 02:23 INR 1.1 07/22/18 02:23 APTT 37.4 Seconds (25.6-37.1) H 07/22/18 02:23 - Constitutional Appears: No Acute Distress - Head Exam Head Exam: NORMAL INSPECTION - Eye Exam Eye Exam: PERRL - ENT Exam Additional comments: Tongue swollen great decreasing, able to close mouth. - Neck Exam Neck Exam: Normal Inspection - Respiratory Exam Respiratory Exam: Decreased Breath Sounds (at bases), Rhonchi (scattered) - Cardiovascular Exam Cardiovascular Exam: Tachycardia - GI/Abdominal Exam GI & Abdominal Exam: Soft, Normal Bowel Sounds Additional comments: Peg tube - Exam Additional comments: Mishra Cath - Extremities Exam Additional comments: R-L arm contracted L>R - Back Exam Additional comments: Skin tear on gluteal folds and sacral area - Neurological Exam Neurological Exam: Awake Additional comments: Non verbal minimal response to tactile stimuli, R hemiplegia. minimal movement LUE - Skin Skin Exam: Warm Assessment and Plan (1) Allergic angioedema Status: Acute (2) Diabetes mellitus with hyperglycemia Status: Acute (3) Dehydration Status: Acute (4) COPD (chronic obstructive pulmonary disease) Status: Chronic (5) HTN (hypertension) Status: Chronic (6) Dysphagia Status: Chronic (7) History of CVA with residual deficit Status: Chronic (8) Right hemiplegia Status: Chronic - Assessment and Plan (Free Text) Plan: r Angioedema reaction greatly improved, Pt able to close her mouth now, begin Peg feeding, continue Solu-Medrol, Benadril, Pepcid and rest of Tx.
[2018-07-23] MEDS ORDERED: methylPREDNISolone 40 MG in Sodium Chloride 0.9% 50 ML IVPB SCH (17:00)
[2018-07-23] MEDS: Mupirocin 2% Cream TOP SCH (20:25)
[2018-07-23] MEDS: DiphenhydrAMINE 12.5 mg/5 ml LIQ UD (5 ml) PO SCH (20:26)
[2018-07-24] MEDS: Albuterol-Ipratrop 3 mg / 0.5 (3 ml) UD INH SCH ×7 (00:05→23:43)
--- NOTE | 2018-07-24 02:39 | PN ---
PROCEDURE DATE: 07/23/2018 CRITICAL CARE PROGRESS NOTE LOCATION: The patient in room 422. TIME SPENT: 35 minutes. SUBJECTIVE: The patient is seen and evaluated at the bedside. Past medical, surgical, family, and social history reviewed. Ms. Diaz is a 78-year-old female, long term resident with history significant for hypertension, diabetes mellitus type 2, hyperlipidemia, chronic obstructive pulmonary disease, status post CVA with right-sided hemiplegia, aphagia, and dysphagia; status post PEG insertion. Admitted through emergency room after noted to have swelling and edema of the face and tongue. THE PATIENT IS KNOWN TO HAVE ALLERGY TO IODINE AND SHELLFISH. She has been on losartan for hypertension, which has been held since admission, now on nasal trumpet with oxygen supplement and saturating 100%. No respiratory distress or stridor noted. Seen by ENT and the endoscopy showed no mass, no lesion, no airway compromise. Overnight telemetry; sinus rhythm, normotensive, afebrile. PHYSICAL EXAMINATION: VITAL SIGNS: Temperature 98.7, heart rate 96, blood pressure 125/56, mean arterial pressure 79, respiratory rate 16, and oxygen saturation 100% on room air. Intake 2450, output 600, positive balance 850. Weight 132 pounds. HEAD, EYES, EARS, NOSE, AND THROAT: Pupils 2 to 3 mm reactive, reduced swelling of the tongue, less protrusion, nasal trumpet intact on the right. NECK: Nontender. CHEST: Bilateral breath sounds, prolonged expiration. HEART: Rhythm regular. S1, S2 normal. ABDOMEN: Bowel sounds present. PEG in place. EXTREMITIES: Dependent edema. NEUROLOGIC: Sleepy, but easily arousable. No facial droop. Nonverbal. Motor strength 0/5. Moving right lower extremity minimally. Left lower extremity strength 0/5. SKIN: Dry, normal, warm to touch. CURRENT MEDICATIONS: Tylenol 650 mg PEG every 4 hours p.r.n., albuterol/Atrovent inhalation every 4 hours, Norvasc 10 mg PEG daily, aspirin 81 mg PEG daily, azithromycin 500 mg IV daily, ceftriaxone 1 g IV daily, Benadryl 25 mg IV every 12 hours, Lovenox 40 mg subcu daily, Pepcid 20 mg IV every 12 hours, hydrocortisone 100 mg IV every 6 hours, Levemir 10 units subcu b.i.d., Accu-Chek with regular insulin coverage, lactulose 20 g daily, mineral oil 135 mL per rectum daily p.r.n. for constipation, multivitamin 15 mL daily, racemic epinephrine 2.25% 0.5 mL every 3 hours p.r.n., and sodium chloride at 100 mL per hour. LABORATORY DATA: WBC 10, hemoglobin 11.7, hematocrit 34.9, platelet count 197. PT 12.5, INR 1.1, and PTT 37.4. SMA-7; sodium 139, potassium 4.1, chloride 108, CO2 26, blood urea nitrogen 27, creatinine 0.7, random glucose 160, calcium 8.3. Microbiology, urine culture no growth, blood culture no growth. Chest x-ray, no active disease. IMPRESSION: 1. Neurologic: Status post cerebrovascular accident, right-sided hemiplegia, status post percutaneous endoscopic gastrostomy tube insertion. 2. Pulmonary: No respiratory distress, no stridor. Swelling improved. Reduce systemic steroids. Benadryl 25 mg every 12 hours and Pepcid. Closely monitor for respiratory compromise. History of chronic obstructive pulmonary disease, continue on bronchodilator. 3. Cardiac: Hypertension, improved. 4. Hematology: No leukocytosis. Normal hemoglobin and hematocrit. Normal platelet count. No coagulation defect noted. 5. Renal: Electrolyte abnormalities. 6. Endocrinology: Diabetes mellitus type 2, hyperglycemia secondary to steroids. Continue insulin coverage. 7. Infectious Diseases: No acute issues noted, empirically on antibiotic for possible upper respiratory infection. 8. Gastrointestinal: No acute issues. Continue feeding as tolerated, Glucerna 1.2 at 55 mL per hour. Keep head of bed 30 degrees up. DVT prophylaxis. Roderick Camara MD
[2018-07-24 06:22] LABS: HEMOGLOBIN 12.4 g/dL (12.0-16.0); MEAN CELL VOLUME 88.2 fl (81.0-99.0); MEAN CORPUSCULAR HGB CONC 32.8 g/dL (33.0-37.0); RBC 4.29 Mil/uL (3.80-5.20); RED CELL DISTRIBUTION WIDTH 13.5 % (11.5-14.5); WHITE BLOOD COUNT 7.2 K/uL (4.8-10.8)
[2018-07-24 06:35] LABS: BLOOD UREA NITROGEN 22 mg/dl (7-17); GFR NON-AFRICAN AMERICAN > 60
[2018-07-24] MEDS: Insulin Regular 100 units/ml SC SCH ×4 (06:57→21:44)
--- NOTE | 2018-07-24 07:46 | CP.CCUPN ---
CCU Subjective - Physician Review Events Since Last Encounter (Free Text): 07/24/18 14:10 The patient was Seen and examined by me at the bedside during ICU round, Medical records reviewed and Management issues were discussed and formulated with the house staff. Events reviewed Ms. 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 Who was transferred from [facility] for swelling swelling lip and tongue Patient admitted to the ICU for management of allergic angioedema Started on Solu-Medrol, Pepcid and Benadryl Patient is doing much better today, Angioedema much improved, Less swelling Comfortable in no apparent distress Patient receiving tube feeding with Glucerna via gastrostomy tube Will increase tube feeding to goal and discontinue IV fluids Continue with ICU management for 1 more day for respiratory and hemodynamic monitoring Continue famotidine, diphenhydramine and Solu-Medrol Continue nebulizer treatment And racemic epi as needed On GI and DVT prophylaxis with SCDs and Lovenox Patient is DNR/DNI 07/24/18 14:21 Will discontinue Antibiotics with Rocephin and azithromycin Blood and urine cultures negative Admission CXR No active disease. CCU Objective - Vital Signs / Intake & Output Vital Signs (Last 4 hours): Vital Signs Temp Pulse Resp BP Pulse Ox 07/24/18 06:00 94 H 21 132/74 100 07/24/18 04:00 98.5 F 96 H 25 H 160/53 H 99 Intake and Output (Last 8hrs): Intake & Output 07/23/18 07/24/18 07/24/18 22:59 06:59 14:59 Intake Total 575 720 Output Total 1700 1200 Balance -1125 -480 Weight 137 lb Intake: IV 300 400 Tube Feeding 275 320 Output: Urine 1700 1200 Urethral (Mishra) 1700 1200 - Physical Exam Physical Exam Limitations: Positive for: Altered Mental Status Head: Positive for: Atraumatic, Normocephalic Pupils: Positive for: PERRL Extroacular Muscles: Positive for: EOMI Conjunctiva: Positive for: Normal Mouth: Positive for: Moist Mucous Membranes Neck: Positive for: Normal Range of Motion, Trachea Midline. Negative for: Meningeal Signs, MIDLINE TENDERNESS, Paraspinal Tenderness, JVD, Lymphadenopathy, Bruit, Other Respiratory/Chest: Positive for: Clear to Auscultation, Good Air Exchange. Negative for: Respiratory Distress, Accessory Muscle Use Cardiovascular: Positive for: Regular Rate and Rhythm, Normal S1, S2, Peripheal Pulses Present. Negative for: Murmurs Abdomen: Positive for: Normal Bowel Sounds. Negative for: Tenderness, Distention Upper Extremity: Positive for: Normal Inspection. Negative for: Edema Lower Extremity: Positive for: Normal Inspection. Negative for: CALF TENDERNESS - Medications Active Medications: Active Medications Generic Name Dose Route Start Last Admin Trade Name Freq PRN Reason Stop Dose Admin Acetaminophen 650 mg 07/22/18 04:14 Tylenol 325mg Tab PEG Q4 PRN Pain, Mild (1-3) Acetaminophen 650 mg 07/22/18 04:14 Tylenol 325mg Tab PEG Q4 PRN Fever >100.4 F Albuterol/Ipratropium 3 ml 07/22/18 08:00 07/24/18 07:17 Duoneb 3 Mg/0.5 Mg (3 Ml) Ud INH 3 ml RQ4 [facility] Administration Albuterol/Ipratropium 3 ml 07/22/18 05:17 Duoneb 3 Mg/0.5 Mg (3 Ml) Ud INH RQ4 PRN Shortness of Breath Amlodipine Besylate 10 mg 07/22/18 09:00 07/23/18 08:25 Norvasc PEG 10 mg DAILY [facility] Administration Aspirin 81 mg 07/22/18 09:00 07/23/18 08:24 Aspirin Chewable PEG 81 mg DAILY [facility] Administration Diphenhydramine HCl 12.5 mg 07/23/18 21:00 07/23/18 20:26 Benadryl PO 12.5 mg Q12 [facility] Administration Enoxaparin Sodium 40 mg 07/22/18 09:00 07/23/18 08:25 Lovenox SC 40 mg DAILY [facility] Administration Protocol Famotidine 20 mg 07/22/18 04:45 07/23/18 20:30 Pepcid IVP 20 mg Q12 [facility] Administration Ceftriaxone Sodium 1 gm/ 100 mls @ 100 mls/hr 07/22/18 05:15 07/23/18 08:23 Sodium Chloride IVPB 100 mls/hr DAILY [facility] Administration Protocol Azithromycin 500 mg/ Sodium 250 mls @ 250 mls/hr 07/22/18 06:15 07/23/18 08:48 Chloride IVPB 250 mls/hr DAILY [facility] Administration Protocol Sodium Chloride 1,000 mls @ 50 mls/hr 07/23/18 15:00 07/23/18 15:07 Sodium Chloride 0.9% IV 07/24/18 14:50 50 mls/hr .Q20H [facility] Administration Insulin Detemir 10 units 07/22/18 21:00 07/23/18 22:37 Levemir SC 10 units Q12 [facility] Administration Insulin Human Regular 0 units 07/22/18 04:30 07/24/18 06:57 Humulin R SC 6 u Q6H [facility] Administration Protocol Lactulose 20 gm 07/22/18 09:00 07/23/18 08:25 Enulose PEG 20 gm DAILY [facility] Administration Methylprednisolone 40 mg 07/23/18 15:00 07/23/18 22:38 Solu-Medrol IVP 40 mg Q8H [facility] Administration Mineral Oil 135 ml 07/22/18 05:32 Fleet Mineral Oil Enema [place] DAILY PRN Constipation Multivitamins/Vitamin C 15 ml 07/22/18 09:00 07/23/18 08:24 Multi-Delyn Liquid PEG 15 ml DAILY [facility] Administration Mupirocin 1 applic 07/23/18 19:00 07/23/18 20:25 Bactroban Cream TOP 1 applic BID [facility] Administration Racepinephrine 0.5 ml 07/22/18 06:55 Racepinephrine 2.25% Inhl Soln INH RQ3 PRN Other - Patient Studies Lab Studies: Microbiology Studies 07/22/18 02:15 Blood Culture - Preliminary Blood-Venous NO GROWTH AFTER 48 HOURS 07/22/18 12:20 MRSA Culture (Admit) - Final Naris MRSA DETECTED 07/22/18 03:10 Urine Culture - Final Urine,Catheterized No Growth (<1,000 CFU/ML) Lab Studies 07/24/18 07/24/18 07/24/18 Range/Units 06:11 06:05 06:05 WBC 7.2 (4.8-10.8) K/uL RBC 4.29 (3.80-5.20) Mil/uL Hgb 12.4 (12.0-16.0) g/dL Hct 37.8 (34.0-47.0) % MCV 88.2 (81.0-99.0) fl MCH 29.0 (27.0-31.0) pg MCHC 32.8 L (33.0-37.0) g/dL RDW 13.5 (11.5-14.5) % Plt Count 217 (130-400) K/uL Sodium 137 (132-148) mmol/l Potassium 3.5 L (3.6-5.0) MMOL/L Chloride 106 (98-107) mmol/L Carbon Dioxide 24 (22-30) mmol/L Anion Gap 11 (10-20) BUN 22 H (7-17) mg/dl Creatinine 0.6 L (0.7-1.2) mg/dl Est GFR ( Amer) > 60 Est GFR (Non-Af Amer) > 60 POC Glucose (mg/dL) 313 H (65-110) mg/dL Random Glucose 318 H (65-105) mg/dL Calcium 8.0 L (8.4-10.2) mg/dL 07/23/18 07/23/18 07/23/18 Range/Units 21:35 16:13 10:15 WBC (4.8-10.8) K/uL RBC (3.80-5.20) Mil/uL Hgb (12.0-16.0) g/dL Hct (34.0-47.0) % MCV (81.0-99.0) fl MCH (27.0-31.0) pg MCHC (33.0-37.0) g/dL RDW (11.5-14.5) % Plt Count (130-400) K/uL Sodium (132-148) mmol/l Potassium (3.6-5.0) MMOL/L Chloride (98-107) mmol/L Carbon Dioxide (22-30) mmol/L Anion Gap (10-20) BUN (7-17) mg/dl Creatinine (0.7-1.2) mg/dl Est GFR ( Amer) Est GFR (Non-Af Amer) POC Glucose (mg/dL) 229 H 147 H 213 H (65-110) mg/dL Random Glucose (65-105) mg/dL Calcium (8.4-10.2) mg/dL 07/23/18 07/22/18 07/22/18 Range/Units 06:52 20:38 16:05 WBC (4.8-10.8) K/uL RBC (3.80-5.20) Mil/uL Hgb (12.0-16.0) g/dL Hct (34.0-47.0) % MCV (81.0-99.0) fl MCH (27.0-31.0) pg MCHC (33.0-37.0) g/dL RDW (11.5-14.5) % Plt Count (130-400) K/uL Sodium (132-148) mmol/l Potassium (3.6-5.0) MMOL/L Chloride (98-107) mmol/L Carbon Dioxide (22-30) mmol/L Anion Gap (10-20) BUN (7-17) mg/dl Creatinine (0.7-1.2) mg/dl Est GFR ( Amer) Est GFR (Non-Af Amer) POC Glucose (mg/dL) 165 H 151 H 156 H (65-110) mg/dL Random Glucose (65-105) mg/dL Calcium (8.4-10.2) mg/dL 07/22/18 07/22/18 Range/Units 10:18 06:51 WBC (4.8-10.8) K/uL RBC (3.80-5.20) Mil/uL Hgb (12.0-16.0) g/dL Hct (34.0-47.0) % MCV (81.0-99.0) fl MCH (27.0-31.0) pg MCHC (33.0-37.0) g/dL RDW (11.5-14.5) % Plt Count (130-400) K/uL Sodium (132-148) mmol/l Potassium (3.6-5.0) MMOL/L Chloride (98-107) mmol/L Carbon Dioxide (22-30) mmol/L Anion Gap (10-20) BUN (7-17) mg/dl Creatinine (0.7-1.2) mg/dl Est GFR ( Amer) Est GFR (Non-Af Amer) POC Glucose (mg/dL) 281 H 401 H* (65-110) mg/dL Random Glucose (65-105) mg/dL Calcium (8.4-10.2) mg/dL Laboratory Results - last 24 hr 07/22/18 07/22/18 07/22/18 06:51 10:18 16:05 WBC RBC Hgb Hct MCV MCH MCHC RDW Plt Count Sodium Potassium Chloride Carbon Dioxide Anion Gap BUN Creatinine Est GFR ( Amer) Est GFR (Non-Af Amer) POC Glucose (mg/dL) 401 H* 281 H 156 H Random Glucose Calcium 07/22/18 07/23/18 07/23/18 20:38 06:52 10:15 WBC RBC Hgb Hct MCV MCH MCHC RDW Plt Count Sodium Potassium Chloride Carbon Dioxide Anion Gap BUN Creatinine Est GFR ( Amer) Est GFR (Non-Af Amer) POC Glucose (mg/dL) 151 H 165 H 213 H Random Glucose Calcium 07/23/18 07/23/18 07/24/18 16:13 21:35 06:05 WBC 7.2 RBC 4.29 Hgb 12.4 Hct 37.8 MCV 88.2 MCH 29.0 MCHC 32.8 L RDW 13.5 Plt Count 217 Sodium Potassium Chloride Carbon Dioxide Anion Gap BUN Creatinine Est GFR ( Amer) Est GFR (Non-Af Amer) POC Glucose (mg/dL) 147 H 229 H Random Glucose Calcium 07/24/18 07/24/18 06:05 06:11 WBC RBC Hgb Hct MCV MCH MCHC RDW Plt Count Sodium 137 Potassium 3.5 L Chloride 106 Carbon Dioxide 24 Anion Gap 11 BUN 22 H Creatinine 0.6 L Est GFR ( Amer) > 60 Est GFR (Non-Af Amer) > 60 POC Glucose (mg/dL) 313 H Random Glucose 318 H Calcium 8.0 L Fingerstick Blood Sugar Results: 313 Review of Systems - Review of Systems Systems not reviewed;Unavailable: Altered Mental Status Critical Care Progress Note - Extremities/Vascular Does the Patient have a Central Venous Catheter?: No Does the Patient need a Central Venous Catheter?: No Does the Patient have a Mishra Catheter?: Yes Does the Patient need a Mishra Catheter?: No (Will remove today) Assessment/Plan (1) Allergic angioedema Current Visit: Yes Status: Acute Priority: High (2) Allergic reaction Current Visit: Yes Status: Acute Priority: High (3) Diabetes mellitus with hyperglycemia Current Visit: Yes Status: Acute Priority: High (4) COPD (chronic obstructive pulmonary disease) Current Visit: Yes Status: Chronic Priority: High (5) History of CVA with residual deficit Current Visit: Yes Status: Chronic Priority: High (6) Right hemiplegia Current Visit: Yes Status: Chronic Priority: High
[2018-07-24] MEDS: Mupirocin 2% Cream TOP SCH ×2 (09:33→17:35)
[2018-07-24] MEDS: MethylPREDNISolone 40 mg Vial IVP SCH ×3 (09:33→22:05)
[2018-07-24] MEDS: Multi Vitamins 15 mL UD Oral Solution PEG SCH (09:34)
[2018-07-24] MEDS: DiphenhydrAMINE 12.5 mg/5 ml LIQ UD (5 ml) PO SCH ×2 (09:35→21:43)
[2018-07-24] MEDS: Enoxaparin 40 mg Syringe SC SCH (09:35)
[2018-07-24] MEDS: Insulin Detemir 100 Units/ml Inj SC SCH ×2 (09:36→20:54)
[2018-07-24] MEDS: Azithromycin 500 MG in Sodium Chloride 0.9% 250 ML IVPB SCH (09:40)
--- NOTE | 2018-07-24 14:18 | CP.PCM.PN ---
Subjective - Date & Time of Evaluation Date of Evaluation: 07/24/18 Time of Evaluation: 13:20 - Subjective Subjective: F/U Allergic Angioedema. Eyes open minimal response to tactile stimuli, no A/D. Objective - Vital Signs/Intake and Output Vital Signs (last 24 hours): Temp Pulse Resp BP Pulse Ox 98.9 F 115 H 27 H 144/86 99 07/24/18 12:00 07/24/18 12:00 07/24/18 12:00 07/24/18 12:00 07/24/18 12:00 Intake and Output: 07/24/18 07/24/18 06:59 18:59 Intake Total 1080 510 Output Total 1200 Balance -120 510 - Medications Medications: Current Medications Acetaminophen (Tylenol 325mg Tab) 650 mg PEG Q4 PRN PRN Reason: Pain, Mild (1-3) Acetaminophen (Tylenol 325mg Tab) 650 mg PEG Q4 PRN PRN Reason: Fever >100.4 F Albuterol/Ipratropium (Duoneb 3 Mg/0.5 Mg (3 Ml) Ud) 3 ml INH RQ4 CARMEN Last Admin: 07/24/18 11:19 Dose: 3 ml Albuterol/Ipratropium (Duoneb 3 Mg/0.5 Mg (3 Ml) Ud) 3 ml INH RQ4 PRN PRN Reason: Shortness of Breath Amlodipine Besylate (Norvasc) 10 mg PEG DAILY [facility] Last Admin: 07/24/18 09:35 Dose: 10 mg Aspirin (Aspirin Chewable) 81 mg PEG DAILY [facility] Last Admin: 07/23/18 08:24 Dose: 81 mg Diphenhydramine HCl (Benadryl) 12.5 mg PO Q12 [facility] Last Admin: 07/24/18 09:35 Dose: 12.5 mg Enoxaparin Sodium (Lovenox) 40 mg SC DAILY [facility]; Protocol Last Admin: 07/24/18 09:35 Dose: 40 mg Famotidine (Pepcid) 20 mg IVP Q12 [facility] Last Admin: 07/23/18 20:30 Dose: 20 mg Ceftriaxone Sodium 1 gm/ (Sodium Chloride) 100 mls @ 100 mls/hr IVPB DAILY [facility]; Protocol Last Admin: 07/24/18 09:40 Dose: 100 mls/hr Azithromycin 500 mg/ Sodium (Chloride) 250 mls @ 250 mls/hr IVPB DAILY [facility]; Protocol Last Admin: 07/24/18 09:40 Dose: 250 mls/hr Insulin Detemir (Levemir) 10 units SC Q12 [facility] Last Admin: 07/24/18 09:36 Dose: 10 units Insulin Human Regular (Humulin R) 0 units SC Q6H [facility]; Protocol Last Admin: 07/24/18 06:57 Dose: 6 u Lactulose (Enulose) 20 gm PEG DAILY [facility] Last Admin: 07/24/18 09:37 Dose: 20 gm Methylprednisolone (Solu-Medrol) 40 mg IVP Q8H [facility] Last Admin: 07/24/18 09:33 Dose: 40 mg Mineral Oil (Fleet Mineral Oil Enema) 135 ml [place] DAILY PRN PRN Reason: Constipation Multivitamins/Vitamin C (Multi-Delyn Liquid) 15 ml PEG DAILY [facility] Last Admin: 07/24/18 09:34 Dose: 15 ml Mupirocin (Bactroban Cream) 1 applic TOP BID [facility] Last Admin: 07/24/18 09:33 Dose: 1 applic Racepinephrine (Racepinephrine 2.25% Inhl Soln) 0.5 ml INH RQ3 PRN PRN Reason: Other - Labs Labs: 07/24/18 06:05 07/24/18 06:05 PT 12.5 Seconds (9.8-13.1) 07/22/18 02:23 INR 1.1 07/22/18 02:23 APTT 37.4 Seconds (25.6-37.1) H 07/22/18 02:23 - Constitutional Appears: No Acute Distress - Head Exam Head Exam: NORMAL INSPECTION - Eye Exam Eye Exam: PERRL - ENT Exam Additional comments: Tongue swollen decreased, able to close mouth. - Neck Exam Neck Exam: Normal Inspection - Respiratory Exam Respiratory Exam: Decreased Breath Sounds (at bases) - Cardiovascular Exam Cardiovascular Exam: Tachycardia - GI/Abdominal Exam GI & Abdominal Exam: Soft, Normal Bowel Sounds Additional comments: Peg tube - Exam Additional comments: Mishra cath - Extremities Exam Additional comments: R-L arm contracted L > R - Back Exam Additional comments: Skin tear on gluteal folds and sacral area - Neurological Exam Neurological Exam: Awake Additional comments: Non verbal, minimal response to verbal/tactile stimuli, R hemiplegia, minimal movement LUE - Skin Skin Exam: Warm Assessment and Plan (1) Allergic angioedema Status: Acute (2) Diabetes mellitus with hyperglycemia Status: Acute (3) Dehydration Status: Acute (4) COPD (chronic obstructive pulmonary disease) Status: Chronic (5) HTN (hypertension) Status: Chronic (6) Dysphagia Status: Chronic (7) History of CVA with residual deficit Status: Chronic (8) Right hemiplegia Status: Chronic - Assessment and Plan (Free Text) Plan: Continue Benadryl, Duoneb, Solu-Medrol, Lovenox, Insulin and rest of Tx.
[2018-07-25] MEDS: Albuterol-Ipratrop 3 mg / 0.5 (3 ml) UD INH SCH ×2 (04:59→08:02)
[2018-07-25 05:26] LABS: HEMOGLOBIN 12.9 g/dL (12.0-16.0); MEAN CELL VOLUME 88.2 fl (81.0-99.0); MEAN CORPUSCULAR HEMOGLOBIN 29.4 pg (27.0-31.0); MEAN CORPUSCULAR HGB CONC 33.3 g/dL (33.0-37.0); RBC 4.4 Mil/uL (3.80-5.20); RED CELL DISTRIBUTION WIDTH 13.6 % (11.5-14.5); WHITE BLOOD COUNT 9.5 K/uL (4.8-10.8)
[2018-07-25] MEDS ORDERED: Albuterol-Ipratrop 3 mg / 0.5 (3 ml) UD INH STA (05:36)
[2018-07-25] MEDS: Insulin Regular 100 units/ml SC SCH ×5 (05:54→21:43)
[2018-07-25 05:55] LABS: BLOOD UREA NITROGEN 27 mg/dl (7-17); CALCIUM 8.9 mg/dL (8.4-10.2); GFR NON-AFRICAN AMERICAN > 60
[2018-07-25] MEDS ORDERED: Levalbuterol 1.25 MG/3 ML Inhal Soln UD INH PRN (08:25)
[2018-07-25] MEDS: Insulin Detemir 100 Units/ml Inj SC SCH ×2 (09:12→20:46)
[2018-07-25] MEDS: DiphenhydrAMINE 12.5 mg/5 ml LIQ UD (5 ml) PEG SCH ×2 (09:12→20:41)
[2018-07-25] MEDS: Enoxaparin 40 mg Syringe SC SCH (09:13)
[2018-07-25] MEDS: MethylPREDNISolone 40 mg Vial IVP SCH ×2 (09:13→20:40)
[2018-07-25] MEDS: Multi Vitamins 15 mL UD Oral Solution PEG SCH (09:14)
[2018-07-25] MEDS: Mupirocin 2% Cream TOP SCH ×2 (09:21→16:23)
--- NOTE | 2018-07-25 14:01 | CP.PCM.PN ---
Subjective - Date & Time of Evaluation Date of Evaluation: 07/25/18 Time of Evaluation: 11:20 - Subjective Subjective: F/U Allergic angioedema. Eyes open, minimal response to tactile stimuli. Objective - Vital Signs/Intake and Output Vital Signs (last 24 hours): Temp Pulse Resp BP Pulse Ox 97.4 F L 103 H 28 H 147/57 L 94 L 07/25/18 12:00 07/25/18 12:00 07/25/18 12:00 07/25/18 12:00 07/25/18 12:00 Intake and Output: 07/25/18 07/25/18 06:59 18:59 Intake Total 684 220 Output Total 101 Balance 583 220 - Medications Medications: Current Medications Acetaminophen (Tylenol 325mg Tab) 650 mg PEG Q4 PRN PRN Reason: Pain, Mild (1-3) Acetaminophen (Tylenol 325mg Tab) 650 mg PEG Q4 PRN PRN Reason: Fever >100.4 F Aspirin (Aspirin Chewable) 81 mg PEG DAILY [facility] Last Admin: 07/25/18 09:23 Dose: 81 mg Diltiazem HCl (Cardizem) 30 mg PEG Q6H [facility] Last Admin: 07/25/18 09:17 Dose: 30 mg Diphenhydramine HCl (Benadryl) 12.5 mg PEG Q12 [facility] Last Admin: 07/25/18 09:12 Dose: 12.5 mg Enoxaparin Sodium (Lovenox) 40 mg SC DAILY [facility]; Protocol Last Admin: 07/25/18 09:13 Dose: 40 mg Famotidine (Pepcid) 20 mg IVP Q12 [facility] Last Admin: 07/25/18 09:20 Dose: 20 mg Insulin Detemir (Levemir) 10 units SC Q12 [facility] Last Admin: 07/25/18 09:12 Dose: 10 units Insulin Human Regular (Humulin R) 0 units SC Q6H [facility]; Protocol Last Admin: 07/25/18 12:03 Dose: 6 u Lactulose (Enulose) 20 gm PEG DAILY [facility] Last Admin: 07/25/18 09:12 Dose: 20 gm Levalbuterol HCl (Xopenex) 1.25 mg INH RQ8 PRN PRN Reason: Shortness of Breath Methylprednisolone (Solu-Medrol) 20 mg IVP Q12 [facility] Mineral Oil (Fleet Mineral Oil Enema) 135 ml [place] DAILY PRN PRN Reason: Constipation Multivitamins/Vitamin C (Multi-Delyn Liquid) 15 ml PEG DAILY [facility] Last Admin: 07/25/18 09:14 Dose: 15 ml Mupirocin (Bactroban Cream) 1 applic TOP BID [facility] Last Admin: 07/25/18 09:21 Dose: 1 applic Racepinephrine (Racepinephrine 2.25% Inhl Soln) 0.5 ml INH RQ3 PRN PRN Reason: Other - Labs Labs: 07/25/18 04:15 07/25/18 04:15 PT 12.5 Seconds (9.8-13.1) 07/22/18 02:23 INR 1.1 07/22/18 02:23 APTT 37.4 Seconds (25.6-37.1) H 07/22/18 02:23 - Constitutional Appears: No Acute Distress - Head Exam Head Exam: NORMAL INSPECTION - Eye Exam Eye Exam: PERRL - ENT Exam ENT Exam: Normal Exam - Neck Exam Neck Exam: Normal Inspection - Respiratory Exam Respiratory Exam: Decreased Breath Sounds (at bases) - Cardiovascular Exam Cardiovascular Exam: Tachycardia - GI/Abdominal Exam GI & Abdominal Exam: Soft, Normal Bowel Sounds Additional comments: Peg tube - Extremities Exam Additional comments: R-L arm contracted L>R - Back Exam Additional comments: Skin tear on gluteal and sacral area, no bleeding - Neurological Exam Neurological Exam: Awake Additional comments: Lethargic, minimal response to verbal stimuli, R hemiplegia, minimal movements LUE - Skin Skin Exam: Warm Assessment and Plan (1) Allergic angioedema Status: Acute (2) Diabetes mellitus with hyperglycemia Status: Acute (3) Dehydration Status: Acute (4) COPD (chronic obstructive pulmonary disease) Status: Chronic (5) HTN (hypertension) Status: Chronic (6) Dysphagia Status: Chronic (7) History of CVA with residual deficit Status: Chronic (8) Right hemiplegia Status: Chronic - Assessment and Plan (Free Text) Plan: Stated by nurse, Pt appeared to have a seizure like activity yesterday in the evening, Pt with eyes rolling up and face tremors, f/u Neurology consult, continue current Tx.
--- NOTE | 2018-07-25 14:14 | CP.PCM.CON ---
History of Present Illness - History of Present Illness History of Present Illness: Neurology Consultation Note: Consult requested by Dr. Laughlin Mrs. Diaz is a 78-[facility]-old [place] [facility] patient with a past medical history of Dementia, previous stroke with residual right side hemiplegia and aphasia with PEG tube placement, DMII, COPD, HTN, HLD, who developed what appeared to be an anaphylactic-like reaction and was admitted for work-up. There were some suspicious breathing movements with tongue biting yesterday and again this morning, which neurology was consulted for considering her history. Review of Systems - Review of Systems Systems not reviewed;Unavailable: Dementia, Altered Mental Status Past Patient History - Past Medical History & Family History Past Medical History?: Yes - Past Social History Smoking Status: Unknown If Ever Smoked Chewing Tobacco Use: No Cigar Use: No Alcohol: None Drugs: Denies Home Situation {Lives}: Residential - CARDIAC Hx Cardiac Disorders: Yes Hx Hypercholesterolemia: Yes Hx Hypertension: Yes - PULMONARY Hx Respiratory Disorders: Yes Hx Chronic Obstructive Pulmonary Disease (COPD): Yes - NEUROLOGICAL Hx Neurological Disorder: Yes HX Cerebrovascular Accident: Yes Other/Comment: R flaccid hemiplegia - HEENT Hx HEENT Problems: No - RENAL Hx Chronic Kidney Disease: No - ENDOCRINE/METABOLIC Hx Endocrine Disorders: Yes Hx Diabetes Mellitus Type 2: Yes - HEMATOLOGICAL/ONCOLOGICAL Hx Blood Disorders: Yes Hx Anemia: Yes - INTEGUMENTARY Hx Dermatological Problems: No - MUSCULOSKELETAL/RHEUMATOLOGICAL Hx Musculoskeletal Disorders: Yes Hx Falls: Yes Hx Osteoarthritis: Yes Other/Comment: R flaccid hemiplegia - GASTROINTESTINAL Hx Gastrointestinal Disorders: Yes HX Swallowing Problems: Yes Other/Comment: Dysphagia - GENITOURINARY/GYNECOLOGICAL Hx Genitourinary Disorders: Yes Hx Urinary Tract Infection: Yes - PSYCHIATRIC Hx Psychophysiologic Disorder: No Hx Substance Use: No - SURGICAL HISTORY Hx Surgeries: Yes Other/Comment: PEG tube - ANESTHESIA Hx Anesthesia: Yes Hx Anesthesia Reactions: No Meds Allergies/Adverse Reactions: Allergies Allergy/AdvReac Type Severity Reaction Status Date / Time iodine Allergy ANGIOEDEMA Verified 07/22/18 01:57 shellfish derived Allergy ANGIOEDEMA Verified 07/22/18 01:57 - Medications Medications: Current Medications Acetaminophen (Tylenol 325mg Tab) 650 mg PEG Q4 PRN PRN Reason: Pain, Mild (1-3) Acetaminophen (Tylenol 325mg Tab) 650 mg PEG Q4 PRN PRN Reason: Fever >100.4 F Aspirin (Aspirin Chewable) 81 mg PEG DAILY [facility] Last Admin: 07/25/18 09:23 Dose: 81 mg Diltiazem HCl (Cardizem) 30 mg PEG Q6H [facility] Last Admin: 07/25/18 09:17 Dose: 30 mg Diphenhydramine HCl (Benadryl) 12.5 mg PEG Q12 [facility] Last Admin: 07/25/18 09:12 Dose: 12.5 mg Enoxaparin Sodium (Lovenox) 40 mg SC DAILY [facility]; Protocol Last Admin: 07/25/18 09:13 Dose: 40 mg Famotidine (Pepcid) 20 mg IVP Q12 [facility] Last Admin: 07/25/18 09:20 Dose: 20 mg Insulin Detemir (Levemir) 10 units SC Q12 [facility] Last Admin: 07/25/18 09:12 Dose: 10 units Insulin Human Regular (Humulin R) 0 units SC Q6H [facility]; Protocol Last Admin: 07/25/18 12:03 Dose: 6 u Lactulose (Enulose) 20 gm PEG DAILY [facility] Last Admin: 07/25/18 09:12 Dose: 20 gm Levalbuterol HCl (Xopenex) 1.25 mg INH RQ8 PRN PRN Reason: Shortness of Breath Methylprednisolone (Solu-Medrol) 20 mg IVP Q12 [facility] Mineral Oil (Fleet Mineral Oil Enema) 135 ml [place] DAILY PRN PRN Reason: Constipation Multivitamins/Vitamin C (Multi-Delyn Liquid) 15 ml PEG DAILY [facility] Last Admin: 07/25/18 09:14 Dose: 15 ml Mupirocin (Bactroban Cream) 1 applic TOP BID [facility] Last Admin: 07/25/18 09:21 Dose: 1 applic Racepinephrine (Racepinephrine 2.25% Inhl Soln) 0.5 ml INH RQ3 PRN PRN Reason: Other Physical Exam - Constitutional Appears: Well - Head Exam Head Exam: ATRAUMATIC, NORMAL INSPECTION, NORMOCEPHALIC - Eye Exam Eye Exam: Normal appearance - ENT Exam ENT Exam: Mucous Membranes Dry - Neck Exam Neck exam: Positive for: Normal Inspection - Respiratory Exam Respiratory Exam: Clear to Auscultation Bilateral, NORMAL BREATHING PATTERN - Cardiovascular Exam Cardiovascular Exam: REGULAR RHYTHM, +S1, +S2 - GI/Abdominal Exam GI & Abdominal Exam: Normal Bowel Sounds, Soft. absent: Tenderness - Extremities Exam Extremities exam: Positive for: normal inspection - Back Exam Back exam: NORMAL INSPECTION - Neurological Exam Neurological exam: Altered, CN II-XII Intact Additional comments: Aphasic, confused, non-verbal, does not follow commands. Right side hemiplegia, left side moves spontaneously but not to command. Sensation appears to be intact. Cannot test coordination or gait. - Psychiatric Exam Psychiatric exam: Normal Affect, Normal Mood - Skin Skin Exam: Dry, Intact, Normal Color, Warm Results - Vital Signs Recent Vital Signs: Last Vital Signs Temp 97.4 F L 07/25/18 12:00 Pulse 103 H 07/25/18 12:00 Resp 28 H 07/25/18 12:00 BP 147/57 L 07/25/18 12:00 Pulse Ox 94 L 07/25/18 12:00 - Labs Result Diagrams: 07/25/18 04:15 07/25/18 04:15 Labs: Laboratory Results - last 24 hr 07/24/18 07/24/18 07/25/18 16:51 20:43 04:15 WBC 9.5 RBC 4.40 Hgb 12.9 Hct 38.8 MCV 88.2 MCH 29.4 MCHC 33.3 RDW 13.6 Plt Count 236 Sodium Potassium Chloride Carbon Dioxide Anion Gap BUN Creatinine Est GFR ( Amer) Est GFR (Non-Af Amer) POC Glucose (mg/dL) 276 H 277 H Random Glucose Calcium 07/25/18 07/25/18 07/25/18 04:15 05:17 11:21 WBC RBC Hgb Hct MCV MCH MCHC RDW Plt Count Sodium 140 Potassium 3.6 Chloride 105 Carbon Dioxide 26 Anion Gap 13 BUN 27 H Creatinine 0.7 Est GFR ( Amer) > 60 Est GFR (Non-Af Amer) > 60 POC Glucose (mg/dL) 254 H 339 H Random Glucose 270 H Calcium 8.9 Assessment & Plan - Assessment and Plan (Free Text) Assessment: Questionable seizure activity. I did not notice any focal movements or generalized shaking during my exam. The patient is aphasic and has dementia at baseline. It is difficult to assess the patient without further imaging. Plan: Obtain an EEG for one hour to evaluate for seizure. Continue medical management. Thank you for this consultation.
--- NOTE | 2018-07-25 15:49 | PN ---
DATE: 07/25/2018 LOCATION: The patient in ICU, bed 422. TIME SPENT: 35 minutes. SUBJECTIVE: The patient is seen and evaluated at the bedside. Case discussed in multidisciplinary ICU rounds this morning. Past medical, surgical, family and social history reviewed. A 78-year-old female from [place] with history significant for hypertension; diabetes mellitus type 2; hyperlipidemia; chronic obstructive pulmonary disease; status post CVA with right hemiplegia, aphasia and dysphagia, status post PEG insertion, admitted with complaining of swelling and edema in the face and tongue. The patient has a history of ALLERGY TO IODINE AND SHELLFISH. Also has been on losartan for hypertension, on hold since admission. Overnight afebrile, normotensive. Telemetry, sinus tachycardia. No respiratory distress. Reportedly noted to have blinking of both eyelids and smacking of face, lasted for a brief period of time, witnessed by RN. This morning, alert and awake but eyes closed. Does not follow commands. No distress. No further involuntary movement of lips or tongue or face noted. PHYSICAL EXAMINATION: VITAL SIGNS: Temperature 98.6; heart rate 114 regular; blood pressure 147-151/68 mean arterial pressure; respiratory rate 19-29, thoracoabdominal; saturating at 98% on room air. HEAD, EYES, EARS, NOSE AND THROAT: Pupils are reactive, 2-3 mm. No nystagmus. No gaze preference. Nasal present on the right nostril. Examination of oral mucosa, old dried blood noted on the anterior tongue and around the lips. NECK: Supple. CHEST: Bilateral breath sounds, prolonged expiration, clear to auscultation anteriorly and laterally. HEART: Rhythm regular. S1, S2 rapid. No S3 or S4 gallop. No audible murmur. ABDOMEN: Bowel sounds present. PEG in place. Nontender. EXTREMITIES: Trace edema. DP palpable. No palpable cord. CURRENT MEDICATIONS: Tylenol 650 mg PEG every 4 hours p.r.n. for mild pain and 650 mg PEG every 4 hours p.r.n. for fever more than 100.4, Xopenex 1.25 mg every 8 hours, Cardizem 30 mg every 6 hours, aspirin 81 mg daily, Benadryl 12.5 mg PEG every 12 hours, Lovenox 40 mg subcu daily, Pepcid 20 mg IV every 12 hours, Levemir 10 units subcu every 12 hours, Accu-Chek with regular insulin coverage, Solu-Medrol 20 mg IV every 12 hours, mineral oil 135 mL per rectum daily p.r.n. for constipation, multivitamin with vitamin C 15 mL daily, Bactroban cream one application topically b.i.d. for 5 days, racemic epinephrine as needed. LABORATORY DATA: WBC 9.5, hemoglobin 12.9, hematocrit 38.8, platelet count of 236. SMA-7, sodium 140, potassium 3.6, chloride 105, CO2 of 26, blood urea nitrogen 27, creatinine 0.7, random glucose 254, calcium 8.9. Magnesium level pending. Microbiology; nasal MRSA positive. Urine culture, no growth; and blood culture, no growth reported. DIAGNOSTIC DATA: Electrocardiogram on 07/22/2018 shows sinus tachycardia, left atrial enlargement, T-wave abnormality, more so on the anterolateral leads. The x-ray is normal. IMPRESSION AND PLAN: 1. Neuro status post cerebrovascular accident, right hemiplegia, suspected focal seizure as reported by RN. We will get Neurology input with possible electroencephalogram to rule out seizure activity. 2. Pulmonary, no distress noted. No stridor. Swelling markedly improved. Reduce systemic steroid. Benadryl 12.5 mg every 12 hours, Pepcid. History of chronic obstructive pulmonary disease, on bronchodilator. No audible wheezing or distress noted. 3. Cardiac, hypertension improved, sinus tachycardia related to frequent use of bronchodilator and/or rule out systemic inflammatory response syndrome. 4. Hematology, no leukocytosis. Hemoglobin and hematocrit stable. Normal platelet count. No coagulation deficit, on deep vein thrombosis prophylaxis. 5. Renal, no electrolyte abnormalities. 6. Endocrinology, diabetes mellitus type 2, on steroids being tapered off. Continue Levemir and insulin coverage. 7. Infectious Disease, no acute issues noted, off antibiotic. 8. Gastroenterology, no acute issues. Continue feeding as tolerated. Glucerna at 1.2 at 55 mL/hour. Keep the head of bed 30 degrees up, deep vein thrombosis prophylaxis. Continue Bactrim for positive nasal smear Methicillin-resistant Staphylococcus aureus. Follow up Neurology input. Roderick Camara MD
[2018-07-26] MEDS: Insulin Regular 100 units/ml SC SCH ×4 (04:34→22:09)
[2018-07-26 05:35] LABS: BASO % 0.1 % (0.0-2.0); HEMOGLOBIN 13.1 g/dL (12.0-16.0); LYMPH # 0.8 K/uL (1.0-4.3); LYMPH % 7.7 % (20.0-40.0); MEAN CELL VOLUME 88.2 fl (81.0-99.0); MEAN CORPUSCULAR HEMOGLOBIN 30.1 pg (27.0-31.0); MEAN CORPUSCULAR HGB CONC 34.1 g/dL (33.0-37.0); MEAN PLATELET VOLUME 9.4 fl (7.2-11.7); MONO # 0.4 K/uL (0.0-0.8); MONO % 3.8 % (0.0-10.0); NEUT # 9.5 K/uL (1.8-7.0); NEUT % 88.4 % (50.0-75.0); NRBC % 0.1 % (0.0-0.0); PLATELET COUNT 225 K/uL (130-400); RBC 4.37 Mil/uL (3.80-5.20); RED CELL DISTRIBUTION WIDTH 13.8 % (11.5-14.5); WHITE BLOOD COUNT 10.7 K/uL (4.8-10.8)
[2018-07-26 05:46] LABS: BLOOD UREA NITROGEN 32 mg/dl (7-17); CALCIUM 8.9 mg/dL (8.4-10.2); GFR NON-AFRICAN AMERICAN > 60
[2018-07-26 08:09] LABS: LYMPHOCYTE 9 % (20-50); MONOCYTE 2 % (0-10); NEUTROPHIL 89 % (42-75); PLATELET ESTIMATE NORMAL (NORMAL); TOTAL CELLS COUNTED 100
[2018-07-26 08:10] LABS: ANISOCYTOSIS SLIGHT; LARGE PLATELETS PRESENT; OVALOCYTES SLIGHT
[2018-07-26] MEDS: Mupirocin 2% Cream TOP SCH ×2 (08:34→16:27)
[2018-07-26] MEDS: DiphenhydrAMINE 12.5 mg/5 ml LIQ UD (5 ml) PEG SCH ×2 (08:35→20:37)
[2018-07-26] MEDS: Enoxaparin 40 mg Syringe SC SCH (08:37)
[2018-07-26] MEDS: Insulin Detemir 100 Units/ml Inj SC SCH ×2 (08:37→20:52)
[2018-07-26] MEDS: Multi Vitamins 15 mL UD Oral Solution PEG SCH (08:38)
[2018-07-26] MEDS: MethylPREDNISolone 40 mg Vial IVP SCH ×2 (08:39→20:39)
--- NOTE | 2018-07-26 10:25 | PCM.EEG ---
Electroencephalogram Report - Electroencephalogram Report Procedure Date: 07/25/18 Medication: Insulin, Diliazem, ASA. Interpretation: Medications: None listed Technical Information: This was a 16-channel EEG, 1-channel EKG , performed using an Remote Assistant machine., electrodes were applied according to the 10/20 international placement system, impedances were less than 5 K Ohm. Start; 17;29 End; 18;28 Total 59 minutes. Clinical Information: This EEG was performed on a 78 -year old patient with dementia and abnormal movements. EEG Detail: During resting wakefulness there was a symmetric posterior dominant rhythm at 7 Hz, 30-50 uV, which was reactive to eye opening and closing. Drowsiness was not seen. The EEG was of low amplitude. Sleep was not seen. Hyperventilation was not performed. Photic stimulation was performed and there were no changes in the record. ECG was associated with a normal sinus rhythm. Impression: This is an abnormal EEG record that demonstrate the presence of a mild non specific diffuse disturbance of cortical activity, this is in keeping with a diffuse oro matter dysfunction. These findings do not support a specific etiology. No seizures, not in status epilepticus.
--- NOTE | 2018-07-26 11:15 | CP.PCM.PN ---
Subjective - Date & Time of Evaluation Date of Evaluation: 07/26/18 Time of Evaluation: 11:11 - Subjective Subjective: Neuro Follow-Up Note: Mrs. Diaz was evaluated this morning in ICU. No family present during time of evaluation. Pt has baseline dementia and is aphasic from a previous CVA. She does not follow commands. Pt appears comfortable and in no acute distress. ROS is unobtainable 2/2 pt being aphasic. Objective - Vital Signs/Intake and Output Vital Signs (last 24 hours): Temp Pulse Resp BP Pulse Ox 98.7 F 100 H 17 170/77 H 100 07/26/18 08:00 07/26/18 10:00 07/26/18 10:00 07/26/18 10:00 07/26/18 10:00 Intake and Output: 07/26/18 07/26/18 06:59 18:59 Intake Total 684 224 Output Total 351 Balance 333 224 - Medications Medications: Current Medications Acetaminophen (Tylenol 325mg Tab) 650 mg PEG Q4 PRN PRN Reason: Pain, Mild (1-3) Acetaminophen (Tylenol 325mg Tab) 650 mg PEG Q4 PRN PRN Reason: Fever >100.4 F Aspirin (Aspirin Chewable) 81 mg PEG DAILY [facility] Last Admin: 07/26/18 08:34 Dose: 81 mg Diltiazem HCl (Cardizem) 60 mg PEG Q6H [facility] Diphenhydramine HCl (Benadryl) 12.5 mg PEG Q12 [facility] Last Admin: 07/26/18 08:35 Dose: 12.5 mg Enoxaparin Sodium (Lovenox) 40 mg SC DAILY [facility]; Protocol Last Admin: 07/26/18 08:37 Dose: 40 mg Famotidine (Pepcid) 20 mg IVP Q12 [facility] Last Admin: 07/25/18 20:45 Dose: 20 mg Insulin Detemir (Levemir) 10 units SC Q12 [facility] Last Admin: 07/26/18 08:37 Dose: 10 units Insulin Human Regular (Humulin R) 0 units SC Q6H [facility]; Protocol Last Admin: 07/26/18 04:34 Dose: 6 u Lactulose (Enulose) 20 gm PEG DAILY [facility] Last Admin: 07/26/18 08:36 Dose: 20 gm Levalbuterol HCl (Xopenex) 1.25 mg INH RQ8 PRN PRN Reason: Shortness of Breath Methylprednisolone (Solu-Medrol) 20 mg IVP Q12 [facility] Last Admin: 07/26/18 08:39 Dose: 20 mg Mineral Oil (Fleet Mineral Oil Enema) 135 ml [place] DAILY PRN PRN Reason: Constipation Multivitamins/Vitamin C (Multi-Delyn Liquid) 15 ml PEG DAILY [facility] Last Admin: 07/26/18 08:38 Dose: 15 ml Mupirocin (Bactroban Cream) 1 applic TOP BID [facility] Last Admin: 07/26/18 08:34 Dose: 1 applic Racepinephrine (Racepinephrine 2.25% Inhl Soln) 0.5 ml INH RQ3 PRN PRN Reason: Other - Labs Labs: 07/26/18 04:19 07/26/18 04:19 PT 12.5 Seconds (9.8-13.1) 07/22/18 02:23 INR 1.1 07/22/18 02:23 APTT 37.4 Seconds (25.6-37.1) H 07/22/18 02:23 - Constitutional Appears: No Acute Distress, Other (aphasic; does not follow commands) - Head Exam Head Exam: ATRAUMATIC, NORMAL INSPECTION, NORMOCEPHALIC - Eye Exam Eye Exam: EOMI, PERRL. absent: Nystagmus Pupil Exam: NORMAL ACCOMODATION, PERRL Additional comments: Pt is unable to follow commands but opens and closes eyes on own; EOMI intact; pupils equal b/l. - ENT Exam ENT Exam: Mucous Membranes Moist - Neck Exam Neck Exam: Normal Inspection - Respiratory Exam Respiratory Exam: NORMAL BREATHING PATTERN - GI/Abdominal Exam GI & Abdominal Exam: Soft Additional comments: peg - Extremities Exam Extremities Exam: absent: Calf Tenderness, Pedal Edema Additional comments: right sided hemiplegia 2/2 previous cva, though, extremities seem rigid today. - Neurological Exam Neurological Exam: Altered Additional comments: Aphasic 2/2 previous CVA Does not follow commands Right sided hemiplegia though extremities seem rigid today No tremors or abnormal movements noted Toes upgoing b/l Reflexes brisk b/l Unable to assess sensation 2/2 aphasia - Psychiatric Exam Additional comments: aphasic; appears comfortable - Skin Skin Exam: Normal Color Assessment and Plan - Assessment and Plan (Free Text) Assessment: A/P: Mrs. Diaz is a 78 y/o female who was admitted for anaphylaxis. She was noted to have questionable seizure like activity by ICU staff on 07/24/18. She jackson s baseline dementia and aphasia from previous CVA. An EEG was recommended by our team and completed to rule out seizures. -EEG (07/25/18): This is an abnormal EEG record that demonstrate the presence of a mild non specific diffuse disturbance of cortical activity, this is in keeping with a diffuse oro matter dysfunction. These findings do not support a specific etiology. No seizures, not in status epilepticus. -Non-contrast CT Head ordered to further evaluate for any intracranial abnorma lities--will f/u with results. -Continue current management and treatment of underlying issues. -Continue secondary stroke prevention. -May continue seizure precautions and notify neuro team if any seizure activity is observed. Faye Goodman, YO, CREDIT PROCESSOR d/w Dr. Bean
--- NOTE | 2018-07-26 11:37 | CP.CCUPN ---
CCU Subjective - Physician Review Subjective (Free Text): Awake, but remains aphasic, no recurrent seizure or seizure-like activity noted. BPs have been trending high, up to 180s systolic, does not appear distressed. Other vitals reviewed, with SBP 150-180s, HR 100s, 100% on RA, RR 22. Afebrile, no fever spikes overnight. ROS: No other pertinent negs or positives on 10+ system review. PMSFH: All other Nursing and physician documentation reviewed to date; no new pertinent info noted relevant to current medical problems. EXAM- HEENT: no icterus, no gaze preference, pupils equal and reactive 3 mm size, no nystagmus. Tongue dry, depressed gag, no stridor, no drooling NECK: supple, no visible JVD, no adenopathy, thyroid nonpalpable. CHEST: decreased BS at the bases, no wheezes audible bilaterally. HEART: regular, distant, tachy S1S2, no rubs or murmurs noted ABD: soft, no guarding or focal tenderness; no organomegaly, BS hypoactive. EXT: trace leg edema and thigh edema, no calf tenderness or palpable cords, distal pulses intact and symmetrical. SCDs on bilat. NEURO: flexion contracture RUE, tone increased in all extremities. SKIN: no rashes, warm and dry LABS: WBC= 10.7 HGB= 13.1 PLTs= 225K Na= 139 K= 4.2 CL= 102 HCO3= 25 BUN/Cr= 32/0.7 BS= 317 No film since 07/22, CXR: clear pope (my interp). IMPRESSION / MAJOR PROBLEMS NOW: 1. Allergic Reaction with Angioedema involving mouth and tongue: resolved. 2. s/p CVA with R hemiparesis 3. Accelerated HTN, also on Steroids. 4. Uncontrolled DM II, also on Steroids. PLAN: 1. Wean IV Steroids. 2. ARBs on hold. 3. Maintain normoglycemia in the interim. 4. Additional Cardizem via PEG today for BP control, though outpt meds show she was on Amlodipine only for BP control. Cardizem may need further titration once off steroids. 5. EEG negative for seizure activity, and has not been started on any AED therapy. 6. Stable for regular med/surg bed.
--- NOTE | 2018-07-26 13:40 | CP.PCM.PN ---
Subjective - Date & Time of Evaluation Date of Evaluation: 07/26/18 Time of Evaluation: 10:00 - Subjective Subjective: F/U Allergic Angioedema. no AD, eyes open, mouth is close, no seizure like activity reported by nurses Objective - Vital Signs/Intake and Output Vital Signs (last 24 hours): Temp Pulse Resp BP Pulse Ox 98.0 F 97 H 24 178/74 H 97 07/26/18 12:00 07/26/18 12:00 07/26/18 12:00 07/26/18 12:00 07/26/18 12:00 Intake and Output: 07/26/18 07/26/18 06:59 18:59 Intake Total 684 338 Output Total 351 Balance 333 338 - Medications Medications: Current Medications Acetaminophen (Tylenol 325mg Tab) 650 mg PEG Q4 PRN PRN Reason: Pain, Mild (1-3) Acetaminophen (Tylenol 325mg Tab) 650 mg PEG Q4 PRN PRN Reason: Fever >100.4 F Aspirin (Aspirin Chewable) 81 mg PEG DAILY [facility] Last Admin: 07/26/18 08:34 Dose: 81 mg Diltiazem HCl (Cardizem) 60 mg PEG Q6H [facility] Diphenhydramine HCl (Benadryl) 12.5 mg PEG Q12 [facility] Last Admin: 07/26/18 08:35 Dose: 12.5 mg Enoxaparin Sodium (Lovenox) 40 mg SC DAILY [facility]; Protocol Last Admin: 07/26/18 08:37 Dose: 40 mg Famotidine (Pepcid) 20 mg IVP Q12 [facility] Last Admin: 07/26/18 09:40 Dose: 20 mg Insulin Detemir (Levemir) 10 units SC Q12 [facility] Last Admin: 07/26/18 08:37 Dose: 10 units Insulin Human Regular (Humulin R) 0 units SC Q6H [facility]; Protocol Last Admin: 07/26/18 11:45 Dose: 8 u Lactulose (Enulose) 20 gm PEG DAILY [facility] Last Admin: 07/26/18 08:36 Dose: 20 gm Levalbuterol HCl (Xopenex) 1.25 mg INH RQ8 PRN PRN Reason: Shortness of Breath Methylprednisolone (Solu-Medrol) 20 mg IVP Q12 [facility] Last Admin: 07/26/18 08:39 Dose: 20 mg Mineral Oil (Fleet Mineral Oil Enema) 135 ml [place] DAILY PRN PRN Reason: Constipation Multivitamins/Vitamin C (Multi-Delyn Liquid) 15 ml PEG DAILY [facility] Last Admin: 07/26/18 08:38 Dose: 15 ml Mupirocin (Bactroban Cream) 1 applic TOP BID [facility] Last Admin: 07/26/18 08:34 Dose: 1 applic Racepinephrine (Racepinephrine 2.25% Inhl Soln) 0.5 ml INH RQ3 PRN PRN Reason: Other - Labs Labs: 07/26/18 04:19 07/26/18 04:19 PT 12.5 Seconds (9.8-13.1) 07/22/18 02:23 INR 1.1 07/22/18 02:23 APTT 37.4 Seconds (25.6-37.1) H 07/22/18 02:23 - Constitutional Appears: No Acute Distress - Head Exam Head Exam: NORMAL INSPECTION - Eye Exam Eye Exam: PERRL - ENT Exam ENT Exam: Normal Exam Additional comments: Mouth an lips closed, - Neck Exam Neck Exam: Normal Inspection - Respiratory Exam Respiratory Exam: Decreased Breath Sounds (at bases) - Cardiovascular Exam Cardiovascular Exam: Tachycardia - GI/Abdominal Exam GI & Abdominal Exam: Soft, Normal Bowel Sounds - Exam Additional comments: Mishra Cath - Extremities Exam Additional comments: R-L arm contracted, L>R - Back Exam Additional comments: Skin tear on gluteal and sacral areas - Neurological Exam Additional comments: Minimal response to verbal stimuli, R hemiplegia. - Skin Skin Exam: Warm Assessment and Plan (1) Allergic angioedema Status: Resolved (2) Diabetes mellitus with hyperglycemia Status: Acute (3) Dehydration Status: Acute (4) COPD (chronic obstructive pulmonary disease) Status: Chronic (5) HTN (hypertension) Status: Chronic (6) Dysphagia Status: Chronic (7) History of CVA with residual deficit Status: Chronic (8) Right hemiplegia Status: Chronic - Assessment and Plan (Free Text) Plan: EEG no seizure, diffuse oro matter dysfunction, CT Head old R L infarcts , Cerebellar infarcts, taper steroids, BP control
--- NOTE | 2018-07-26 14:02 | CT ---
Date of service: 07/26/2018 PROCEDURE: CT HEAD WITHOUT CONTRAST. HISTORY: poss seizures; h/o cva, dementia COMPARISON: 03/11/2015. TECHNIQUE: Axial computed tomography images were obtained through the head/brain without intravenous contrast. Radiation dose: Total exam DLP = 1069.78 mGy-cm. This CT exam was performed using one or more of the following dose reduction techniques: Automated exposure control, adjustment of the mA and/or kV according to patient size, and/or use of iterative reconstruction technique. FINDINGS: HEMORRHAGE: No intracranial hemorrhage. BRAIN: There is a large area of cystic encephalomalacia and cortical laminar necrosis in the left frontal and parietal lobes with volume loss and ex vacuo dilatation of the left lateral ventricle and belly and degeneration of the pyramidal tract. There is also multifocal cystic encephalomalacia in the right frontal lobe and right cerebellar hemisphere. There are chronic infarctions in the left cerebellar hemisphere. There are mild chronic microangiopathic changes. There is no mass, mass effect or abnormal extra-axial fluid collection. VENTRICLES: There is moderate age-related global parenchymal volume loss and proportionate enlargement of the ventricles and cortical sulci. CALVARIUM: There is no calvarial fracture or extracranial soft tissue swelling. PARANASAL SINUSES: Predominantly clear. MASTOID AIR CELLS: Predominantly clear. OTHER FINDINGS: None. IMPRESSION: 1. No acute intracranial abnormality. 2. Large cystic encephalomalacia in the left frontal and parietal lobes, sequela of remote MCA territory infarction. 3. Multifocal cystic encephalomalacia in the right cerebellar hemisphere and chronic infarctions in the left cerebellar hemisphere. 4. Chronic right frontal lobe infarction. 5. Mild chronic microangiopathic changes and moderate age-related global parenchymal volume loss.
[2018-07-27] MEDS: Insulin Regular 100 units/ml SC SCH ×3 (05:28→17:23)
[2018-07-27] MEDS: Mupirocin 2% Cream TOP SCH ×2 (08:39→16:04)
[2018-07-27] MEDS: DiphenhydrAMINE 12.5 mg/5 ml LIQ UD (5 ml) PEG SCH (08:39)
[2018-07-27] MEDS: Insulin Detemir 100 Units/ml Inj SC SCH (08:45)
[2018-07-27] MEDS: Enoxaparin 40 mg Syringe SC SCH (08:53)
[2018-07-27] MEDS: MethylPREDNISolone 40 mg Vial IVP SCH (08:54)
[2018-07-27] MEDS: Multi Vitamins 15 mL UD Oral Solution PEG SCH (08:54)
--- NOTE | 2018-07-27 11:20 | CP.PCM.PN ---
Subjective - Date & Time of Evaluation Date of Evaluation: 07/27/18 Time of Evaluation: 11:15 - Subjective Subjective: Neuro Follow-Up Note: Mrs. Diaz was evaluated this morning in ICU. No family present during time of evaluation. Pt has baseline dementia and is aphasic from a previous CVA. She does not follow commands. She appears comfortable and in no acute distress. ROS is unobtainable 2/2 pt being aphasic. Objective - Vital Signs/Intake and Output Vital Signs (last 24 hours): Temp Pulse Resp BP Pulse Ox 98.5 F 86 22 140/55 L 100 07/27/18 07:26 07/27/18 10:00 07/27/18 10:00 07/27/18 10:00 07/27/18 10:00 Intake and Output: 07/27/18 07/27/18 06:59 18:59 Intake Total 960 258 Output Total 500 Balance 460 258 - Medications Medications: Current Medications Acetaminophen (Tylenol 325mg Tab) 650 mg PEG Q4 PRN PRN Reason: Pain, Mild (1-3) Acetaminophen (Tylenol 325mg Tab) 650 mg PEG Q4 PRN PRN Reason: Fever >100.4 F Aspirin (Aspirin Chewable) 81 mg PEG DAILY [facility] Last Admin: 07/27/18 08:39 Dose: 81 mg Diltiazem HCl (Cardizem) 60 mg PEG Q6H [facility] Last Admin: 07/27/18 08:39 Dose: 60 mg Diphenhydramine HCl (Benadryl) 12.5 mg PEG Q12 [facility] Last Admin: 07/27/18 08:39 Dose: 12.5 mg Enoxaparin Sodium (Lovenox) 40 mg SC DAILY [facility]; Protocol Last Admin: 07/27/18 08:53 Dose: 40 mg Famotidine (Pepcid) 20 mg IVP Q12 [facility] Last Admin: 07/27/18 08:55 Dose: 20 mg Insulin Detemir (Levemir) 10 units SC Q12 [facility] Last Admin: 07/27/18 08:45 Dose: 10 units Insulin Human Regular (Humulin R) 0 units SC Q6H [facility]; Protocol Last Admin: 07/27/18 05:28 Dose: 3 u Lactulose (Enulose) 20 gm PEG DAILY [facility] Last Admin: 07/27/18 08:45 Dose: 20 gm Levalbuterol HCl (Xopenex) 1.25 mg INH RQ8 PRN PRN Reason: Shortness of Breath Methylprednisolone (Solu-Medrol) 20 mg IVP Q12 [facility] Last Admin: 07/27/18 08:54 Dose: 20 mg Mineral Oil (Fleet Mineral Oil Enema) 135 ml [place] DAILY PRN PRN Reason: Constipation Multivitamins/Vitamin C (Multi-Delyn Liquid) 15 ml PEG DAILY [facility] Last Admin: 07/27/18 08:54 Dose: 15 ml Mupirocin (Bactroban Cream) 1 applic TOP BID [facility] Last Admin: 07/27/18 08:39 Dose: 1 applic Racepinephrine (Racepinephrine 2.25% Inhl Soln) 0.5 ml INH RQ3 PRN PRN Reason: Other - Labs Labs: 07/26/18 04:19 07/26/18 04:19 PT 12.5 Seconds (9.8-13.1) 07/22/18 02:23 INR 1.1 07/22/18 02:23 APTT 37.4 Seconds (25.6-37.1) H 07/22/18 02:23 - Constitutional Appears: No Acute Distress, Other (aphasic) - Head Exam Head Exam: ATRAUMATIC, NORMAL INSPECTION, NORMOCEPHALIC - Eye Exam Eye Exam: Normal appearance, PERRL. absent: Nystagmus Pupil Exam: NORMAL ACCOMODATION, PERRL Additional comments: does not follow commands but opens and closes eyes spontaneously - ENT Exam ENT Exam: Mucous Membranes Moist - Neck Exam Neck Exam: Normal Inspection - Respiratory Exam Respiratory Exam: NORMAL BREATHING PATTERN - Cardiovascular Exam Cardiovascular Exam: REGULAR RHYTHM - GI/Abdominal Exam GI & Abdominal Exam: Soft Additional comments: peg - Extremities Exam Extremities Exam: absent: Joint Swelling, Pedal Edema Additional comments: Right sided hemiplegia 2/2 previous CVA; though it appears that pt tries to withdraw upper extremities when she is being examined. - Neurological Exam Neurological Exam: Altered Additional comments: Aphasic 2/2 previous CVA Does not follow commands Right sided hemiplegia though it appears that pt tries to withdraw upper extremities when she is being examined. No tremors or abnormal movements noted Toes upgoing b/l Reflexes +1 b/l Unable to assess sensation 2/2 aphasia - Psychiatric Exam Additional comments: Pt is aphasic 2/2 previous CVA Doesn't follow commands Appears comfortable - Skin Skin Exam: Normal Color Assessment and Plan - Assessment and Plan (Free Text) Assessment: A/P: Mrs. Diaz is a 78 y/o female who was admitted for anaphylaxis. She was noted to have questionable seizure like activity by ICU staff on 07/24/18. She has baseline dementia and aphasia from previous CVA. An EEG was recommended by our team and completed to rule out seizures. We also recommended a non-contrast CT Head to further evaluate. -CT Head (07/26/18): 1. No acute intracranial abnormality. 2. Large cystic encephalomalacia in the left frontal and parietal lobes, sequela of remote MCA territory infarction. 3. Multifocal cystic encephalomalacia in the right cerebellar hemisphere and chronic infarctions in the left cerebellar hemisphere. 4. Chronic right frontal lobe infarction. 5. Mild chronic microangiopathic changes and moderate age-related global parenchymal volume loss. -EEG (07/25/18): This is an abnormal EEG record that demonstrate the presence of a mild non specific diffuse disturbance of cortical activity, this is in keeping with a diffuse oro matter dysfunction. These findings do not support a specific etiology. No seizures, not in status epilepticus. -Start Keppra 500 mg PEG BID for seizure prevention based on the witnessed seizure-like activity and the pt's imaging. Please continue this upon d/c as well. -Continue current management and treatment of underlying issues. -Continue secondary stroke prevention. -Continue seizure precautions and notify neuro team if any seizure activity is observed. No further recommendations at this time. Reconsult prn. Thank you for this consultation. Faye Goodman, YO, LABORATORY DIRECTOR d/w Dr. Bean
--- NOTE | 2018-07-27 14:06 | CP.PCM.PN ---
Subjective - Date & Time of Evaluation Date of Evaluation: 07/27/18 Time of Evaluation: 11:00 - Subjective Subjective: F/U Allergic Angioedema. Eyes open, minimal response to tactile stimuli, R hemiplegia. Objective - Vital Signs/Intake and Output Vital Signs (last 24 hours): Temp Pulse Resp BP Pulse Ox 96.8 F L 82 21 143/54 L 98 07/27/18 12:00 07/27/18 12:00 07/27/18 12:00 07/27/18 12:00 07/27/18 12:00 Intake and Output: 07/27/18 07/27/18 06:59 18:59 Intake Total 960 372 Output Total 500 Balance 460 372 - Medications Medications: Current Medications Acetaminophen (Tylenol 325mg Tab) 650 mg PEG Q4 PRN PRN Reason: Pain, Mild (1-3) Acetaminophen (Tylenol 325mg Tab) 650 mg PEG Q4 PRN PRN Reason: Fever >100.4 F Aspirin (Aspirin Chewable) 81 mg PEG DAILY [facility] Last Admin: 07/27/18 08:39 Dose: 81 mg Diltiazem HCl (Cardizem) 60 mg PEG Q6H [facility] Last Admin: 07/27/18 08:39 Dose: 60 mg Diphenhydramine HCl (Benadryl) 12.5 mg PEG Q12 [facility] Last Admin: 07/27/18 08:39 Dose: 12.5 mg Enoxaparin Sodium (Lovenox) 40 mg SC DAILY [facility]; Protocol Last Admin: 07/27/18 08:53 Dose: 40 mg Famotidine (Pepcid) 40 mg PO DAILY [facility] Insulin Detemir (Levemir) 10 units SC Q12 [facility] Last Admin: 07/27/18 08:45 Dose: 10 units Insulin Human Regular (Humulin R) 0 units SC Q6H [facility]; Protocol Last Admin: 07/27/18 11:34 Dose: 10 u Lactulose (Enulose) 20 gm PEG DAILY [facility] Last Admin: 07/27/18 08:45 Dose: 20 gm Levalbuterol HCl (Xopenex) 1.25 mg INH RQ8 PRN PRN Reason: Shortness of Breath Levetiracetam (Keppra) 500 mg PEG BID [facility] Mineral Oil (Fleet Mineral Oil Enema) 135 ml UT DAILY PRN PRN Reason: Constipation Multivitamins/Vitamin C (Multi-Delyn Liquid) 15 ml PEG DAILY [facility] Last Admin: 07/27/18 08:54 Dose: 15 ml Mupirocin (Bactroban Cream) 1 applic TOP BID [facility] Last Admin: 07/27/18 08:39 Dose: 1 applic Racepinephrine (Racepinephrine 2.25% Inhl Soln) 0.5 ml INH RQ3 PRN PRN Reason: Other - Labs Labs: 07/26/18 04:19 07/26/18 04:19 PT 12.5 Seconds (9.8-13.1) 07/22/18 02:23 INR 1.1 07/22/18 02:23 APTT 37.4 Seconds (25.6-37.1) H 07/22/18 02:23 - Constitutional Appears: No Acute Distress - Head Exam Head Exam: NORMAL INSPECTION - Eye Exam Eye Exam: PERRL - ENT Exam Additional comments: lips closed. - Neck Exam Neck Exam: Normal Inspection - Respiratory Exam Respiratory Exam: Decreased Breath Sounds (at bases) - Cardiovascular Exam Cardiovascular Exam: REGULAR RHYTHM - GI/Abdominal Exam GI & Abdominal Exam: Soft, Normal Bowel Sounds Additional comments: Peg tube - Exam Additional comments: Mishra Cath - Extremities Exam Additional comments: R-L arm contracted L>R, +2 edema BUE - Back Exam Additional comments: Slin tear gluteal and sacral area, non bleeding - Neurological Exam Neurological Exam: Awake Additional comments: minimal response to verbal stimuli, R hemiplegia. - Skin Skin Exam: Warm Assessment and Plan (1) Allergic angioedema Status: Resolved (2) Diabetes mellitus with hyperglycemia Status: Acute (3) Dehydration Status: Acute (4) COPD (chronic obstructive pulmonary disease) Status: Chronic (5) HTN (hypertension) Status: Chronic (6) Dysphagia Status: Chronic (7) History of CVA with residual deficit Status: Chronic (8) Right hemiplegia Status: Chronic - Assessment and Plan (Free Text) Plan: angioedema resolved, discussed with Backrest Assembler, [facility] to [facility] , I will follow Patient in this Facility
[2018-07-27 14:20] VITALS: O2SAT 100
--- NOTE | 2018-07-27 15:14 | CP.PCM.PCO ---
Assessment/Plan - Assessment/Plan Plan (Free Text): Discussed with PMD, Dr. Iban Laughlin, stable for hospital discharge back to [facility] under his service. IV Steroids discontinued. - Problems Patient Problems: Problem List (Active/Current) Problem Status Onset Code Allergic reaction Acute T78.40XA Angioedema Acute T78.3XXA Dehydration Acute E86.0 Diabetes mellitus with hyperglycemia Acute E11.65 Pneumonia Acute J18.9 COPD (chronic obstructive pulmonary disease) Chronic J44.9 Dysphagia Chronic R13.10 HTN (hypertension) Chronic I10 History of CVA with residual deficit Chronic I69.30 Right hemiplegia Chronic G81.91 Allergic angioedema Resolved T78.3XXA
[2018-07-27] MEDS ORDERED: levETIRAcetam 100 mg/ml (5ml) Oral Syringe PEG SCH (17:00)
[2018-07-27 21:05] VITALS: BP 135/68; PULSE 72; RESP 14; TEMP 98.2
[2018-07-28] MEDS ORDERED: Famotidine 40 MG/5 ML PO SCH (09:00)
--- NOTE | 2018-07-28 09:29 | CP.PCM.DIS ---
Provider - Provider Date of Admission: 07/22/18 03:49 Attending physician: Iban Laughlin MD Consults: 07/22/18 02:58 Critical Care Consult Stat Comment: Consulting Provider: Navin Morales Consulting Physician: Navin Morales Reason for Consult: facial swelling, tachycardia, resp distress, DNR/DNI 07/22/18 10:01 Otolaryngology Consult Routine Consulting Provider: Jaime Dennis Consulting Physician: Jaime Dennis Reason for Consult: Angioedema, swollen tongue 07/25/18 09:29 Neurology Consult Routine Comment: Consulting Provider: Khurram Bean Consulting Physician: Khurram Bean Reason for Consult: seizure like activity, please eval. Thank you 07/25/18 11:36 Wound Care [Nursing Referral for Wound Care] Routine Comment: Physician Instructions: Reason For Exam: bakari sclae 10 07/27/18 08:00 Pastoral Care Referral Routine Comment: Physician Instructions: Reason For Exam: admission 07/27/18 09:00 Case Management Referral Routine Comment: [facility] patient Physician Instructions: Reason For Exam: admisson Reason for Referral: Discharge Planning Diagnosis - Discharge Diagnosis (1) Allergic angioedema Status: Resolved Priority: High (2) Diabetes mellitus with hyperglycemia Status: Acute Priority: High (3) Dehydration Status: Acute Priority: High (4) COPD (chronic obstructive pulmonary disease) Status: Chronic Priority: High (5) HTN (hypertension) Status: Chronic Priority: Medium (6) Dysphagia Status: Chronic Priority: High (7) History of CVA with residual deficit Status: Chronic Priority: High (8) Right hemiplegia Status: Chronic Priority: High Hospital Course - Lab Results Lab Results: Micro Results 07/22/18 02:15 Blood-Venous Blood Culture - Final NO GROWTH AFTER 5 DAYS 07/22/18 02:15 Blood-Venous Gram Stain - Final TEST NOT PERFORMED 07/22/18 12:20 Naris MRSA Culture (Admit) - Final MRSA DETECTED 07/22/18 03:10 Urine,Catheterized Urine Culture - Final No Growth (<1,000 CFU/ML) Most Recent Lab Values WBC 10.7 K/uL (4.8-10.8) 07/26/18 04:19 RBC 4.37 Mil/uL (3.80-5.20) 07/26/18 04:19 Hgb 13.1 g/dL (12.0-16.0) 07/26/18 04:19 Hct 38.5 % (34.0-47.0) 07/26/18 04:19 MCV 88.2 fl (81.0-99.0) 07/26/18 04:19 MCH 30.1 pg (27.0-31.0) 07/26/18 04:19 MCHC 34.1 g/dL (33.0-37.0) 07/26/18 04:19 RDW 13.8 % (11.5-14.5) 07/26/18 04:19 Plt Count 225 K/uL (130-400) 07/26/18 04:19 MPV 9.4 fl (7.2-11.7) 07/26/18 04:19 Neut % (Auto) 88.4 % (50.0-75.0) H 07/26/18 04:19 Lymph % (Auto) 7.7 % (20.0-40.0) L 07/26/18 04:19 [place] % (Auto) 3.8 % (0.0-10.0) 07/26/18 04:19 Eos % (Auto) 0.0 % (0.0-4.0) 07/26/18 04:19 Baso % (Auto) 0.1 % (0.0-2.0) 07/26/18 04:19 Neut # (Auto) 9.5 K/uL (1.8-7.0) H 07/26/18 04:19 Lymph # (Auto) 0.8 K/uL (1.0-4.3) L 07/26/18 04:19 [place] # (Auto) 0.4 K/uL (0.0-0.8) 07/26/18 04:19 Eos # (Auto) 0.0 K/uL (0.0-0.7) 07/26/18 04:19 Baso # (Auto) 0.0 K/uL (0.0-0.2) 07/26/18 04:19 Neutrophils % (Manual) 89 % (42-75) H 07/26/18 04:19 Lymphocytes % (Manual) 9 % (20-50) L 07/26/18 04:19 Monocytes % (Manual) 2 % (0-10) 07/26/18 04:19 Platelet Estimate Normal (NORMAL) 07/26/18 04:19 Large Platelets Present 07/26/18 04:19 Anisocytosis (manual) Slight 07/26/18 04:19 Ovalocytes Slight 07/26/18 04:19 PT 12.5 Seconds (9.8-13.1) 07/22/18 02:23 INR 1.1 07/22/18 02:23 APTT 37.4 Seconds (25.6-37.1) H 07/22/18 02:23 pCO2 38 mm/Hg (35-45) 07/22/18 02:26 pO2 155 mm/Hg (80-100) H 07/22/18 02:26 HCO3 24.7 mmol/L (21-28) 07/22/18 02:26 ABG pH 7.41 (7.35-7.45) 07/22/18 02:26 ABG Total CO2 25.3 mmol/L (22-28) 07/22/18 02:26 ABG O2 Saturation 100.7 % (95-98) H 07/22/18 02:26 ABG Base Excess -0.3 mmol/L (-2.0-3.0) 07/22/18 02:26 Luis Test Yes 07/22/18 02:26 ABG Potassium 5.0 mmol/L (3.6-5.2) 07/22/18 02:26 VBG pH 7.46 (7.32-7.43) H 07/22/18 02:25 VBG pCO2 35 mmHg (40-60) L 07/22/18 02:25 VBG HCO3 26.1 mmol/L 07/22/18 02:25 VBG Total CO2 26.0 mmol/L (22-28) 07/22/18 02:25 VBG O2 Sat (Calc) 100.5 % (40-65) H 07/22/18 02:25 VBG Base Excess 1.4 mmol/L (0.0-2.0) 07/22/18 02:25 VBG Potassium 5.0 mmol/L (3.6-5.2) 07/22/18 02:25 A-a O2 Difference -3.0 mm/Hg 07/22/18 02:26 Sodium 132.0 mmol/L (132-148) 07/22/18 02:26 Chloride 97.0 mmol/L (98-107) L 07/22/18 02:26 Glucose 506 mg/dL (65-105) H* 07/22/18 02:26 Lactate 1.4 mmol/L (0.7-2.1) 07/22/18 02:26 Vent Mode 2lnc 07/22/18 02:26 FiO2 28.0 % 07/22/18 02:26 Crit Value Called To Hawk cordero md 07/22/18 02:26 Crit Value Called By Bob 07/22/18 02:26 Crit Value Read Back Y 07/22/18 02:26 Blood Gas Notified Time 234 07/22/18 02:26 Sodium 139 mmol/l (132-148) 07/26/18 04:19 Potassium 4.2 MMOL/L (3.6-5.0) 07/26/18 04:19 Chloride 102 mmol/L (98-107) 07/26/18 04:19 Carbon Dioxide 25 mmol/L (22-30) 07/26/18 04:19 Anion Gap 16 (10-20) 07/26/18 04:19 BUN 32 mg/dl (7-17) H 07/26/18 04:19 Creatinine 0.7 mg/dl (0.7-1.2) 07/26/18 04:19 Est GFR ( Amer) > 60 07/26/18 04:19 Est GFR (Non-Af Amer) > 60 07/26/18 04:19 POC Glucose (mg/dL) 347 mg/dL (65-110) H 07/27/18 16:18 Random Glucose 317 mg/dL (65-105) H 07/26/18 04:19 Calcium 8.9 mg/dL (8.4-10.2) 07/26/18 04:19 Total Bilirubin 0.5 mg/dl (0.2-1.3) 07/22/18 02:23 AST 28 U/L (14-36) 07/22/18 02:23 ALT 23 U/L (9-52) 07/22/18 02:23 Alkaline Phosphatase 76 U/L (38-126) 07/22/18 02:23 Troponin I < 0.0120 ng/mL (0.00-0.120) 07/22/18 02:23 NT-Pro-B Natriuret Pep 1260 pg/ml (0-900) H 07/22/18 02:23 Total Protein 8.2 G/DL (6.3-8.2) 07/22/18 02:23 Albumin 3.9 g/dL (3.5-5.0) 07/22/18 02:23 Globulin 4.2 gm/dL (2.2-3.9) H 07/22/18 02:23 Albumin/Globulin Ratio 0.9 (1.0-2.1) L 07/22/18 02:23 Prolactin 27.2 ng/mL (3.0-18.9) H 07/25/18 09:30 Arterial Blood Potassium 5.0 mmol/L (3.6-5.2) 07/22/18 02:26 Venous Blood Potassium 5.0 mmol/L (3.6-5.2) 07/22/18 02:25 Urine Color Yellow (YELLOW) 07/22/18 03:10 Urine Clarity Slighty-cloudy (Clear) 07/22/18 03:10 Urine pH 7.0 (5.0-8.0) 07/22/18 03:10 Ur Specific [place] 1.023 (1.003-1.030) 07/22/18 03:10 Urine Protein 30 mg/dL (NEGATIVE) 07/22/18 03:10 Urine Glucose (UA) >=500 mg/dL (NEGATIVE) 07/22/18 03:10 Urine Ketones Negative mg/dL (NEGATIVE) 07/22/18 03:10 Urine Blood Negative (NEGATIVE) 07/22/18 03:10 Urine Nitrate Negative (NEGATIVE) 07/22/18 03:10 Urine Bilirubin Negative (NEGATIVE) 07/22/18 03:10 Urine Urobilinogen 0.2-1.0 mg/dL (0.2-1.0) 07/22/18 03:10 Ur Leukocyte Esterase Neg May/uL (Negative) 07/22/18 03:10 Urine RBC (Auto) 1 /hpf (0-3) 07/22/18 03:10 Urine Microscopic WBC 1 /hpf (0-5) 07/22/18 03:10 Ur Squamous Epith Cells 1 /hpf (0-5) 04/27/19 03:10 Blood Type A POSITIVE 07/22/18 02:05 Blood Type Confirm A POSITIVE 07/22/18 03:00 Antibody Screen Negative 07/22/18 02:05 BBK History Checked No verified bt 07/22/18 02:05 Discharge Exam - Head Exam Head Exam: NORMAL INSPECTION Discharge Plan - Follow Up Plan Condition: CRITICAL Disposition: TRANSF TO SNF
--- NOTE | 2018-07-28 14:13 | PQF ---
PROVIDER RESPONSE TEXT: Pneumonia and URI ruled out. REVIEWER QUERY TEXT: Conflicting Documentation Clarification Physician?s Documentation Request This Form is Not a Permanent Document in the Medical Record Pt Name: SAMMI NGUYEN MR #: [id number] Payor: MEDICARE PART B Unit/Bed: H.ICU/CCU-H422-1 Adm Date: 07/22/2018 3:49:00 AM Reviewer: Alexandria Satish Ext. Query Date: 07/24/2018 12:51:00 PM Conflicting Documentation Clarification [id number] By submitting this query, we are merely seeking further clarification of documentation to accurately reflect all conditions that you are monitoring, evaluating, treating or that extend the hospitalizati on or utilize additional resources of care. Please utilize your independent clinical judgment when ad dressing the question(s) below. Dear Doctor Iban Laughlin, The patient?s Clinical Indicators include: -- A single mention of Pneumonia is listed in the ER record and then the diagnosis is dropped. Please d ocument if the condition is: -- Confirmed and current: if yes please document the type: i.e. Aspiration pneumonia (please also specify the aspirate) - Please indicate if the aspiration is postprocedure -- Bacterial (please document suspected or probable organism) -- Bronchopneumonia (please document suspected or probable organism) -- Interstitial pneumonia -- Organizing pneumonia / BOOP -- RSV -- Viral -- Other, please specify -- Confirmed, treated and resolved -- Ruled out -- Other, please specify CXR: No active disease. ER: Clinical Impression: Angioedema, Allergic reaction, Pneumonia H and P: Respiratory; Exam: Decreased Breath Sounds (b/l), Rhonchi (scattered, no stridor. H and P:(1) Allergic angioedema Status: Acute Priority: High (2) Diabetes mellitus with hyperglycemia Status: Acute Priority: High (3) Dehydration Status: Acute P riority: High (4) COPD (chronic obstructive pulmonary disease) Status: Chronic (5) HTN (hypertension) Status: Chronic Priority: Medium (6) Dysphagia Status: Chronic Priority: High (7) History of CVA with residual deficit Status: Chronic Priority: High (8) Right hemiplegia Status: Chronic Priority: High Hospitalist:--Suspect Aspiration - Blood Culture - Emperic Ceftriaxone and Azithromycin Critical Care note includes: -empirically on antibiotic for possible upper respiratory infection PLEASE DOCUMENT ANY ADDITIONAL DIAGNOSES AND/OR SPECIFICITY IN THE PROGRESS NOTES AND/OR DISCHARGE TUCKER MMARY. Clinically unable to determine/unknown Disagree with the above request Need to discuss Query created by: Alexandria Covarrubias on 07/24/2018 12:51 PM Electronically signed by: Iban Laughlin MD 07/28/2018 2:10 PM
--- NOTE | 2018-07-28 14:13 | PQF ---
PROVIDER RESPONSE TEXT: COPD stable. REVIEWER QUERY TEXT: COPD Specificity Physician?s Documentation Request This Form is Not a Permanent Document in the Medical Record Pt Name: SAMMI NGUYEN MR #: [id number] Payor: MEDICARE PART B Unit/Bed: H.ICU/CCU-H422-1 Adm Date: 07/22/2018 3:49:00 AM Reviewer: Alexandria Covarrubias Ext. Query Date: 07/24/2018 1:00:00 PM COPD Specificity [id number] By submitting this query, we are merely seeking further clarification of documentation to accurately reflect all conditions that you are monitoring, evaluating, treating or that extend the hospitalizati on or utilize additional resources of care. Please utilize your independent clinical judgment when ad dressing the question(s) below. Dear Doctor Iban Laughlin, The patient?s Clinical Indicators include: -- COPD - Chronic Obstructive Pulmonary Disease is documented in the Medical Record. Please specify the associated condition (includes suspected or probable) Such as: -- Stable -- Exacerbation - acute -- Other, please specify ER note includes: EMS gave epinephrine and decadron with no improvement in status H and P includes: Respiratory: Exam: Decreased Breath Sounds (b/l), Rhonchi (scattered, no stridor. 1) Allergic angioedema Status: Acute Priority: High (2) Diabetes mellitus with hyperglycemia Status: Acute Priority: High (3) Dehydration Status: Acute P riority: High (4) COPD (chronic obstructive pulmonary disease) Status: Chronic (5) HTN (hypertension) Status: Chronic Priority: Medium (6) Dysphagia Status: Chronic Priority: High (7) History of CVA with residual deficit Status: Chronic Priority: High (8) Right hemiplegia Status: Chronic Priority: High -duonebs, IV Solu--Cortef->IV Solu-Medrol PLEASE DOCUMENT ANY ADDITIONAL DIAGNOSES AND/OR SPECIFICITY IN THE PROGRESS NOTES AND/OR DISCHARGE TUCKER MMARY. Clinically unable to determine/unknown Disagree with the above request Need to discuss Query created by: Alexandria Covarrubias on 07/24/2018 1:00 PM Electronically signed by: Iban Laughlin MD 07/28/2018 2:10 PM
== END 2018-07-27 20:30 | DRG 916 ==
LOC: H.ER 01:51 → H.ERHOLD 03:49 → H.ICU/CCU 05:22
PROVIDERS: ADMIT Internal Medicine Pulmonary Disease; ATTEND Internal Medicine Pulmonary Disease
PROC: 0CJS8ZZ Inspection of Larynx, Via Natural or Artificial Opening Endoscopic (ICD-10-PCS; principal; 2018-07-22)
PROC: 3E0G76Z Introduction of Nutritional Substance into Upper GI, Via Natural or Artificial Opening (ICD-10-PCS; 2018-07-22)
DX: T78.3XXA Angioneurotic edema, initial encounter (principal); I69.351 Hemiplegia and hemiparesis following cerebral infarction affecting right dominant side; I69.320 Aphasia following cerebral infarction; F03.90 Unspecified dementia, unspecified severity, without behavioral disturbance, psychotic disturbance, mood disturbance, and anxiety; E11.65 Type 2 diabetes mellitus with hyperglycemia; Z79.4 Long term (current) use of insulin; E86.0 Dehydration; I10 Essential (primary) hypertension; Z93.1 Gastrostomy status; Z91.041 Radiographic dye allergy status; Z66 Do not resuscitate; J44.9 Chronic obstructive pulmonary disease, unspecified; I69.391 Dysphagia following cerebral infarction; E78.00 Pure hypercholesterolemia, unspecified; E78.5 Hyperlipidemia, unspecified; T38.0X5A Adverse effect of glucocorticoids and synthetic analogues, initial encounter; R94.01 Abnormal electroencephalogram [EEG]